=== PATIENT | male | born 1940 ===

== ENCOUNTER 2017-10-07 16:54 | Inpatient (IN) | payer MEDICARE, OTHER ==
[2017-10-07 16:56] VITALS: BMI 35.5
[2017-10-07] MEDS ORDERED: Dextrose 50% SYRINGE Inj (50 ml) ONE (16:58)
[2017-10-07] MEDS ORDERED: Dextrose 50% SYRINGE Inj (50 ml) IVP STA ×2 (17:07→18:10)
[2017-10-07] MEDS ORDERED: Dextrose 5%/0.9% NS 1,000 ML IV STA (17:24)
[2017-10-07 17:39] LABS: VENOUS BLOOD GAS BASE EXCESS -10.5 mmol/L (0.0-2.0)
[2017-10-07 17:50] LABS: BASO # 0.07 K/mm3 (0.0-2.0); BASO % 0.4 % (0.0-3.0); EOS # 2.6 (0.0-0.7); EOS % 15.6 % (1.5-5.0); GRAN # 10.24 (1.4-6.5); HEMATOCRIT 30.5 % (42.0-52.0); LYMPH # 2.8 (1.2-3.4); LYMPH % 16.9 % (22.0-35.0); MEAN CELL VOLUME 85.4 fl (80.0-105.0); MEAN CORPUSCULAR HEMOGLOBIN 26.1 pg (25.0-35.0); MEAN CORPUSCULAR HGB CONC 30.5 g/dl (31.0-37.0); MEAN PLATELET VOLUME 10.1 fl (7.0-11.0); MONO % 6.1 % (1.0-6.0); RED CELL DISTRIBUTION WIDTH 15.5 % (11.5-14.5); WHITE BLOOD COUNT 16.8 10^3/ul (4.5-11.0)
[2017-10-07 18:01] LABS: BILIRUBIN,TOTAL 0.4 mg/dL (0.2-1.3); CALCIUM 9.5 mg/dL (8.4-10.5); TOTAL PROTEIN 7.8 g/dL (5.8-8.3)
[2017-10-07 18:03] LABS: POTASSIUM 6.4 mmol/L (3.6-5.0)
--- NOTE | 2017-10-07 18:06 | ED PDOC ---
Arrival/HPI - General Chief Complaint: Altered Mental Status Time Seen by Provider: 10/07/17 17:06 - History of Present Illness Narrative History of Present Illness (Text): 77M biba for ams noted by son jamarcus mast. last seen normal 1.5 hours before. now lethargic w slurred speech. he is visiting from [place]. his son knows he is taking pills for his dm but otherwise unsure of medical hx. Past Medical History - Cardiac Hx Hypertension: Yes - Pulmonary Hx Respiratory Disorders: No - Neurological Hx Neurological Disorder: No - HEENT Hx HEENT Disorder: No - Renal Hx Renal Disorder: No - Endocrine/Metabolic Hx Diabetes Mellitus Type 2: Yes - Hematological/Oncological Hx Blood Disorders: No - Integumentary Hx Dermatological Disorder: No - Musculoskeletal/Rheumatological Hx Musculoskeletal Disorders: Yes Other/Comment: neuropathy - Gastrointestinal Hx Gastrointestinal Disorders: No - Genitourinary/Gynecological Hx Genitourinary Disorders: No - Psychiatric Hx Psychophysiologic Disorder: No Hx Substance Use: No - Anesthesia Hx Anesthesia: No Family/Social History Family/Social History: Unknown Family HX Smoking Status: Never Smoked Hx Alcohol Use: No Hx Substance Use: No Allergies/Home Meds Allergies/Adverse Reactions: Allergies No Known Allergies Allergy (Verified 10/07/17 16:55) Home Medications: Home Meds Medication Instructions Recorded Confirmed Atorvastatin [Lipitor] 40 mg PO DIN 10/07/17 10/07/17 Carvedilol [Coreg] 12.5 mg PO BID 10/07/17 10/07/17 Clopidogrel [Plavix] 75 mg PO DAILY 10/07/17 10/07/17 Gabapentin [Neurontin] 800 mg PO DAILY 10/07/17 10/07/17 Glimepiride [amaRYL] 4 mg PO DAILY 10/07/17 10/07/17 Hydralazine HCl 100 mg PO TID 10/07/17 10/07/17 Losartan Potassium 50 mg PO DAILY 10/07/17 10/07/17 Review of Systems - Review of Systems Systems not reviewed;Unavailable: Altered Mental Status Physical Exam Vital Signs Reviewed: Yes Vital Signs Temp Pulse Resp BP Pulse Ox 10/07/17 21:06 71 18 155/75 H 98 10/07/17 19:40 75 19 153/74 H 98 10/07/17 17:14 96.7 F L 10/07/17 17:09 98.7 F 129 H 17 154/70 H 97 Appearance: Positive for: Well-Appearing, Non-Toxic, Comfortable Pain Distress: None Mental Status: Positive for: Alert and Oriented X 3 Finger Stick Blood Glucose: 111 - Systems Exam Head: Present: Atraumatic Pupils: Present: PERRL Extroacular Muscles: Present: EOMI Mouth: Present: Moist Mucous Membranes Neck: Present: Normal Range of Motion Respiratory/Chest: No: Respiratory Distress, Accessory Muscle Use, Wheezes, Rales, Retracting, Rhonchi, Tachypneic Cardiovascular: Present: Regular Rate and Rhythm Abdomen: No: Tenderness, Distention Upper Extremity: Present: NORMAL PULSES Lower Extremity: No: Edema Neurological: Present: GCS=15, CN II-XII Intact, Motor Func Grossly Intact, Normal Sensory Function, Other (no focal deficits) Skin: Present: Warm, Dry Psychiatric: Present: Alert, Oriented x 3 Medical Decision Making ED Course and Treatment: note: physical exam is after D50. prior to rx pt had unintelligible speech and was lethargic. bg <20. after D50 his mental status improved. lea Magana who will admit - Critical Care Critical Care Minutes: 45 minutes - Lab Interpretations Lab Results: 10/07/17 17:00 10/07/17 17:00 Lab Results 10/07/17 18:30: pCO2 32 L, pO2 103.0 H, HCO3 14.0 L, ABG pH 7.25 L, ABG Total CO2 15.0 L, ABG O2 Saturation 99.1 H, ABG O2 Content 11.8 L, ABG Base Excess - 12.1 L, ABG Hemoglobin 8.6 L, ABG Carboxyhemoglobin 1.5, POC ABG HHb (Measured) 0.9, ABG Methemoglobin 1.2, ABG O2 Capacity 11.9 L, Hgb O2 Saturation 96.4, FiO2 21.0 10/07/17 18:00: Urine Color Yellow, Urine Appearance Clear, Urine pH 6.0, Ur Specific Hatch 1.020, Urine Protein 100 H, Urine Glucose (UA) Negative, Urine Ketones Negative, Urine Blood Negative, Urine Nitrate Negative, Urine Bilirubin Negative, Urine Urobilinogen 0.2, Ur Leukocyte Esterase Negative, Urine RBC 0 - 2, Urine WBC 0 - 2, Ur Epithelial Cells 0 - 2 10/07/17 17:43: POC Glucose (mg/dL) 111 H 10/07/17 17:08: POC Glucose (mg/dL) 187 H 10/07/17 17:00: Thyroxine (T4) 6.9 10/07/17 17:00: Phosphorus 4.3 10/07/17 17:00: Hemoglobin A1c 6.4 10/07/17 17:00: Sodium 140, Chloride 113 H, Potassium 6.4 H*, Carbon Dioxide 16 L, Anion Gap 17, BUN 87 H, Creatinine 4.7 H, Est GFR ( Amer) 15, Est GFR (Non-Af Amer) 12, Random Glucose 26 L*, Calcium 9.5, Total Bilirubin 0.4, AST 29 , ALT 30, Alkaline Phosphatase 113, Total Protein 7.8, Albumin 3.9, Globulin 3.9 , Albumin/Globulin Ratio 1.0 L 10/07/17 17:00: WBC 16.8 H, RBC 3.57, Hgb 9.3 L, Hct 30.5 L, MCV 85.4, MCH 26.1 , MCHC 30.5 L, RDW 15.5 H, Plt Count 310, MPV 10.1, Gran % 61.0, Lymph % (Auto) 16.9 L, Teller % (Auto) 6.1 H, Eos % (Auto) 15.6 H, Baso % (Auto) 0.4, Gran # 10.24 H, Lymph # 2.8, Teller # 1.0 H, Eos # 2.6 H, Baso # 0.07 10/07/17 17:00: pO2 50, VBG pH 7.20 L, VBG pCO2 44.0, VBG HCO3 17.2 L, VBG Total CO2 18.6 L, VBG O2 Sat (Calc) 91.1 H, VBG Base Excess -10.5 L, VBG Potassium 6.8 H*, Sodium 137.0, Chloride 113.0 H, Glucose 115 H, Lactate 0.6 L, FiO2 21.0, Venous Blood Potassium 6.8 H* - RAD Interpretation Radiology Orders: 10/07/17 17:24 CHEST PORTABLE [RAD] Stat - Medication Orders Current Medication Orders: Acetaminophen (Tylenol 325mg Tab) 650 mg PO Q6H PRN PRN Reason: Fever >100.4 F or pain Atorvastatin Calcium (Lipitor) 40 mg PO DIN [facility] Last Admin: 10/08/17 17:46 Dose: 40 mg Carvedilol (Coreg) 25 mg PO BID [facility] Last Admin: 10/08/17 17:46 Dose: 25 mg MAR Pulse and Blood Pressure Document 10/08/17 17:46 Yadi (Rec: 10/08/17 17:47 [id number]) Pulse Pulse Rate (60-90) 87 Blood Pressure Blood Pressure (100/60-150/90) 181/88 Clopidogrel Bisulfate (Plavix) 75 mg PO DAILY [facility] Last Admin: 10/08/17 11:24 Dose: 75 mg Furosemide (Lasix) 40 mg IV Q12 [facility] Last Admin: 10/08/17 23:04 Dose: 40 mg eMAR Start Stop Document 10/08/17 23:04 SBO (Rec: 10/08/17 23:07 SBO [id number]) Intravenous Solution Start Date 10/08/17 Start Time 23:07 End Date 10/08/17 End time 23:07 Total Infusion Time 0 MAR Blood Pressure Document 10/08/17 23:04 SBO (Rec: 10/08/17 23:07 SBO [id number]) Blood Pressure Blood Pressure (100/60-150/90) 131/68 Gabapentin (Neurontin) 300 mg PO TID [facility] Last Admin: 10/08/17 17:46 Dose: Not Given Non-Admin Reason: Patient Refused Behavioural Document 10/08/17 17:46 (Rec: 10/08/17 17:46 [id number]) Maintenance Maintenance Dose Yes Cefepime HCl 0.5 gm/ Sodium (Chloride) 100 mls @ 100 mls/hr IVPB DAILY@2200 [facility] Last Admin: 10/08/17 23:03 Dose: 100 mls/hr eMAR Start Stop Document 10/08/17 23:03 SBO (Rec: 10/08/17 23:04 SBO [id number]) Intravenous Solution Start Date 10/08/17 Start Time 23:04 End Date 10/09/17 End time 00:05 Total Infusion Time 61 Insulin Human Regular (Humulin R Low) 0 units SC ACHS TALIB PRN Reason: Protocol Last Admin: 10/08/17 22:23 Dose: Not Given Non-Admin Reason: Blood Sugar Parameter MAR Blood Glucose Document 10/08/17 22:23 SBO (Rec: 10/08/17 22:23 SBO [id number]) Blood Glucose Finger Stick Blood Glucose (70-120) 153 Losartan Potassium (Cozaar) 50 mg PO DAILY [facility] Last Admin: 10/08/17 11:25 Dose: 50 mg MAR Pulse and Blood Pressure Document 10/08/17 11:25 JJ (Rec: 10/08/17 11:26 J [id number]) Pulse Pulse Rate (60-90) 70 Blood Pressure Blood Pressure (100/60-150/90) 173/75 Nitroglycerin (Nitro-Bid 2% Oint) 1 ea TOP Q4H PRN PRN Reason: accelerated hypertension Last Admin: 10/08/17 17:50 Dose: 1 ea Discontinued Medications Carvedilol (Coreg) 12.5 mg PO BID [facility] Last Admin: 10/08/17 11:26 Dose: Dextrose (Dextrose 50% Inj) 50 ml IVP STAT STA Stop: 10/07/17 17:08 Last Admin: 10/07/17 17:18 Dose: 50 ml IVP Administration Document 10/07/17 17:18 MR (Rec: 10/07/17 17:18 MR [id number]) Charges for Administration # of IVP Administrations 1 Dextrose (Dextrose 50% Inj) 50 ml IVP STAT STA Stop: 10/07/17 18:11 Last Admin: 10/07/17 18:26 Dose: 50 ml IVP Administration Document 10/07/17 18:26 CNR (Rec: 10/07/17 18:26 CNR [id number]) Charges for Administration # of IVP Administrations 1 Dextrose/Sodium Chloride (Dextrose 5%/0.9% Ns 1000 Ml) 1,000 mls @ 999 mls/hr IV .Q1H1M STA Stop: 10/07/17 18:24 Last Admin: 10/07/17 17:40 Dose: 999 mls/hr eMAR Start Stop Document 10/07/17 17:40 CNR (Rec: 10/07/17 17:40 CNR [id number]) Intravenous Solution Start Date 10/07/17 Start Time 17:40 Dextrose/Sodium Chloride (Dextrose 5%/0.45% Ns 1000 Ml) 1,000 mls @ 60 mls/hr IV .[id number] TALIB Last Admin: 10/07/17 21:18 Dose: 60 mls/hr eMAR Start Stop Document 10/07/17 21:18 [email or web address] (Rec: 10/07/17 21:18 [email or web address] [id number]) Intravenous Solution Start Date 10/07/17 Start Time 21:18 End Date 10/07/17 Vancomycin HCl (Vancomycin 1gm) 1 gm in 250 mls @ 167 mls/hr IVPB ONCE ONE Stop: 10/08/17 11:44 Last Admin: 10/08/17 11:24 Dose: 167 mls/hr eMAR Start Stop Document 10/08/17 11:24 JJ (Rec: 10/08/17 11:25 JJ [id number]) Intravenous Solution Start Date 10/08/17 Start Time 11:24 End Date 10/08/17 End time 12:45 Total Infusion Time 81 Insulin Human Regular (Humulin R) 10 units SC STAT STA Stop: 10/07/17 18:11 Last Admin: 10/07/17 18:24 Dose: 10 units Subcutaneous Administrations Document 10/07/17 18:24 CNR (Rec: 10/07/17 18:26 CNR [id number]) Injection Site MAR Injection Site Right Abdomen Charges for Administration # of Subcutaneous Administrations 1 Pneumococcal Polyvalent Vaccine (Pneumovax 23 Vaccine) 0.5 ml IM .ONCE ONE Stop: 10/07/17 22:38 Sodium Bicarbonate (Sodium Bicarbonate 8.4% (50 Meq) Syringe) 50 meq IVP ONCE ONE Stop: 10/07/17 18:13 Last Admin: 10/07/17 18:26 Dose: 50 meq IVP Administration Document 10/07/17 18:26 MR (Rec: 10/07/17 18:26 MR [id number]) Charges for Administration # of IVP Administrations 1 Disposition/Present on Arrival - Present on Arrival Any Indicators Present on Arrival: No History of DVT/PE: No History of Uncontrolled Diabetes: No Urinary Catheter: No History of Decub. Ulcer: No History Surgical Site Infection Following: None - Disposition Have Diagnosis and Disposition been Completed?: Yes Diagnosis: Gcvka-rh-qftingi kidney injury, Hyperkalemia, Metabolic acidosis, Hypoglycemia Disposition: HOSPITALIZED Disposition Time: 18:58 Patient Problems: Current Active Problems Problem Status Onset [id number] kidney injury Acute Hyperkalemia Acute Hypoglycemia Acute Metabolic acidosis Acute Condition: SERIOUS
[2017-10-07] MEDS ORDERED: Insulin Regular 1 UNITS/0.01 ML ML SC STA (18:10)
[2017-10-07] MEDS ORDERED: Sodium Bicarbonate (8.4%) 50 Meq Syringe IVP ONE (18:12)
[2017-10-07] MEDS ORDERED: Sodium Bicarbonate (8.4%) 50 Meq Syringe ONE (18:23)
[2017-10-07 18:26] LABS: URINE BILIRUBIN NEGATIVE (NEGATIVE); URINE BLOOD NEGATIVE (NEGATIVE); URINE GLUCOSE (UA) NEGATIVE (NEGATIVE); URINE KETONE NEGATIVE (NEGATIVE); URINE LEUKOCYTE ESTERASE NEGATIVE Leu/uL (NEGATIVE); URINE PROTEIN 100 mg/dL (<30 mg/dL); URINE UROBILINOGEN 0.2 E.U./dL (<1 E.U./dL)
[2017-10-07 18:33] LABS: URINE APPEARANCE CLEAR (CLEAR); URINE COLOR YELLOW (YELLOW)
[2017-10-07 18:38] LABS: ARTERIAL BLOOD GAS O2 CAPACITY 11.9 mL/dl (16-24); ARTERIAL BLOOD GAS O2 CONTENT 11.8 ML/dl (15-23); ARTERIAL BLOOD GAS PH 7.25 (7.35-7.45); ARTERIAL BLOOD HGB O2 SAT 96.4 % (95.0-98.0); CARBOXYHEMOGLOBIN 1.5 % (0.5-1.5); HHB 0.9 % (0-5); METHEMOGLOBIN 1.2 % (0.0-3.0)
[2017-10-07 18:45] LABS: URINE EPITHELIAL CELLS 0 - 2 /hpf (0-5); URINE RBC 0 - 2 /hpf (0-2); URINE WBC 0 - 2 /hpf (0-6)
--- NOTE | 2017-10-07 19:25 | RAD ---
HISTORY: ams COMPARISON: No prior. FINDINGS: LUNGS: No active pulmonary disease right chest. Limited left basilar atelectasis or infiltrate is difficult to completely exclude due to difficulty penetrating the left base. PLEURA: No significant pleural effusion identified, no pneumothorax apparent. CARDIOVASCULAR: Prominent cardiac silhouette is appreciate with prominent pulmonary vasculature suggesting active CHF. OSSEOUS STRUCTURES: No significant abnormalities. VISUALIZED UPPER ABDOMEN: Normal. OTHER FINDINGS: None. IMPRESSION: Active CHF is suggested. Clinically correlate further. Left basilar atelectasis or infiltrate is difficult to completely exclude.
[2017-10-07] MEDS: Dextrose 5%/0.45% NS 1,000 ML IV SCH ×2 (19:49→21:18)
--- NOTE | 2017-10-07 19:55 | US ---
EXAM: US Retroperitoneal Limited, Renal CLINICAL HISTORY: 77 years old, male; Abnormal findings; Abnormal lab test; Abnormal function test of other organs/systems; Additional info: Azotemia TECHNIQUE: Real-time ultrasound of the retroperitoneum (limited) with image documentation. COMPARISON: No relevant prior studies available. FINDINGS: Right kidney: Apparent mild increase in echogenicity. 1.1 cm cyst. No calculi. No hydronephrosis. Left kidney: Apparent mild increase in echogenicity. No mass. No calculi. No hydronephrosis. IMPRESSION: 1. Apparent mildly echogenic kidneys possibly representing medical renal disease. 2. Incidental/non-acute findings are described above.
[2017-10-07] MEDS ORDERED: Insulin Reg-LOW-Coverage SC SCH (22:00)
[2017-10-07] MEDS: Insulin Reg-LOW-Coverage SC SCH (22:11)
[2017-10-07] MEDS ORDERED: Pneumococcal 23-Valent Vaccine IM ONE (22:37)
[2017-10-07] MEDS ORDERED: Influenza Vaccine 60 mcg/0.5 mL SYR (4YR UP) IM ONE (22:37)
[2017-10-08 05:54] LABS: HEMATOCRIT 28.5 % (42.0-52.0); MEAN CELL VOLUME 84.6 fl (80.0-105.0); MEAN CORPUSCULAR HEMOGLOBIN 26.7 pg (25.0-35.0); MEAN CORPUSCULAR HGB CONC 31.6 g/dl (31.0-37.0); MEAN PLATELET VOLUME 9.8 fl (7.0-11.0); RED CELL DISTRIBUTION WIDTH 15.3 % (11.5-14.5); WHITE BLOOD COUNT 13.9 10^3/ul (4.5-11.0)
[2017-10-08 06:45] LABS: CALCIUM 9.4 mg/dL (8.4-10.5); POTASSIUM 5.5 mmol/L (3.6-5.0)
[2017-10-08] MEDS ORDERED: Dextrose 50% SYRINGE Inj (50 ml) ONE (07:01)
[2017-10-08] MEDS: Insulin Reg-LOW-Coverage SC SCH ×4 (08:14→22:23)
--- NOTE | 2017-10-08 09:08 | CARD ---
APPROVED REPORT EKG Measurement Heart [id number] OR 184P7 [id number] <Conclusion> Normal sinus rhythm Possible Inferior infarct, age undetermined Abnormal ECG
[2017-10-08] MEDS ORDERED: Vancomycin 1 g Inj IVPB ONE (10:10)
[2017-10-08] MEDS ORDERED: Vancomycin 1gm in NS 250ml 1 GM/250 ML BAG IVPB ONE (10:15)
--- NOTE | 2017-10-08 11:14 | RAD ---
HISTORY: r/o chf COMPARISON: 10/07/2017 TECHNIQUE: Chest PA and lateral FINDINGS: LUNGS: No active pulmonary disease. PLEURA: No significant pleural effusion identified. No pneumothorax apparent. CARDIOVASCULAR: Moderate cardiomegaly. There is mild vascular congestion. This has shown improvement OSSEOUS STRUCTURES: No significant abnormalities. VISUALIZED UPPER ABDOMEN: Normal. OTHER FINDINGS: None. IMPRESSION: Improved vascular congestion
[2017-10-08] MEDS: Nitroglycerin 2% Ointment Foilpak UD TOP PRN ×2 (11:26→17:50)
[2017-10-08 13:26] LABS: IRON 46 ug/dL (45-180)
--- NOTE | 2017-10-08 15:06 | HP ---
HISTORY OF PRESENT ILLNESS: This 77-year-old male was examined on the cardiac skinner. He was seen in the presence of his daughter, Rosaura and his son, Laci. I spoke to his daughter, Hilda Beltre [phone] on a teleconference phone call with his daughter, Rosaura and son present. The patient currently resides with his daughter Hilda in [place], [place]. He is a resident of [place]. He has multiple medical comorbidities including chronic renal failure, chronic hypertension, diabetes mellitus, hyperlipidemia, peripheral neuropathy and anemia of chronic disease. He was admitted after presenting to the [facility] ER with slurred speech and altered mental status secondary to hypoglycemia caused by oral diabetic medication in the setting of chronic renal failure. The family states that they knew the patient had renal insufficiency in [place] the extent to which they were not aware of; however, he was taking Amaryl 4 mg p.o. daily prior to this admission and outpatient medications also included losartan, hydralazine, Amaryl, Neurontin, Plavix, Coreg, and Lipitor. In the emergency room his blood sugar was 26mg/dl. He was also hyperkalemic and acidotic with elevated BUN and creatinine. He was given resusitation medications and is being treated and evaluated for the above. ALLERGIES: HE HAS NO KNOWN ALLERGIES TO MEDICATIONS. SOCIAL HISTORY: He is a nonsmoker, nondrinker, non IV drug mis-user. He is retired and living with his daughter in [place]. FAMILY HISTORY: Not remarkable. REVIEW OF SYSTEMS: CONSTITUTIONAL REVIEW: He denied fever or chills. HEAD REVIEW: Denied any active headache. EYE REVIEW: Denied change in visual acuity. EAR REVIEW: Denied hearing loss. THROAT REVIEW: Denied swallowing difficulty. NECK REVIEW: Denied stiffness. CARDIAC REVIEW: Has a history of chronic hypertension, hyperlipidemia. PULMONARY: Denied hemoptysis. GASTROINTESTINAL: Denied GERD. GENITOURINARY: Chronic renal failure. VASCULAR: No claudication. ENDOCRINOLOGIC: Hyperlipidemia and diabetes mellitus. NEUROLOGIC: Questionable history of previous stroke. No seizure. SKIN: No ulcers. No rashes. PHYSICAL EXAMINATION: GENERAL: He is in normal sinus rhythm on the plastic and reconstructive surgeon. He is alert, weak, but able to answer all questions with the assistance of his family translating. VITAL SIGNS: Temperature 98.1, respirations 18, pulse 70, blood pressure 173/75, and pulse ox 97%. HEENT: Head: Normocephalic, atraumatic. Eyes: No icterus. Ears: Clear. Throat: Noninjected. NECK: Supple. HEART: Regular S1 and S2. No pathological rubs, murmurs or gallops. LUNGS: With basilar rales. No wheezing. ABDOMEN: Soft and nontender. No palpable organomegaly. EXTREMITIES: No clubbing, no cyanosis, no edema. SKIN: Without rash. NEUROLOGIC: Grossly intact. PSYCHOLOGIC: Alert. VASCULAR: Legs warm to touch. SKIN: Without rash. No ulcers. LABORATORY DATA: Admission CBC; white count 16,800, hemoglobin 9.3, hematocrit 30.5, and platelets 310,000. Today white count 13,900, hemoglobin 9, hematocrit 28.5, and platelets 270,000. Sodium 143, K 5.5, chloride 117, bicarb 17, BUN 74, creatinine 4.1, estimated GFR 14 mL per minute, blood sugar 161, and calcium 9.4. Iron 46 normal, percent saturation 18 borderline low. Triglycerides 80, cholesterol 87, LDL 32, and HDL 30. Urinalysis showed a 100 mg per decaliter of protein. EKG shows normal sinus rhythm with nonspecific ST-T wave changes. Admission chest x-ray showed congestive heart failure. Renal ultrasound consistent with medical renal disease, no tumor masses, no hydronephrosis, no stones. Repeat chest x-ray reviewed with Dr. Jenaro Vogel shows persistent mild congestive heart failure. No obvious infiltrates. IMPRESSION: This is a 77-year-old male with altered mental status on admission secondary to hypoglycemia secondary to taking oral diabetic medication in the setting of chronic renal failure, with comorbidities of congestive heart failure, cardiomegaly on chest x-ray, rule out cardiomyopathy, chronic hypertension, anemia of chronic disease, diabetes mellitus, hyperlipidemia, peripheral neuropathy and leukocytosis, rule out sepsis. PLAN: Plan as discussed in detail with the patient and family at bedside and on teleconference is to continue his heart-healthy diabetic renal diet. He is ordered to have a 1200 mL p.o. fluid restriction. I have ordered a 2-D echocardiogram to further evaluate cardiomegaly and to evaluate heart wall motion. He is ordered to have a blood and urine culture and will be given one dose of vancomycin 1 g IV piggyback over 90 minutes and Maxipime 500 mg IV 10:00 p.m. nightly pending culture results. He will have serial CBCs to monitor his white blood cell count as well as hemoglobin/hematocrit. He is ordered to have Plavix 75 mg p.o. daily, nitroglycerin 1 inch to chest wall q.4 hours p.r.n. accelerated hypertension if his systolic blood pressure should be greater than 160 or his diastolic blood pressure should be greater than 100. He continues on Neurontin 300 mg p.o. t.i.d., Lipitor 40 mg p.o. at bedtime, Lasix 40 mg IV q. 12 hours, regular low-dose insulin protocol a.c. meals and at bedtime, Cozaar 50 mg p.o. daily, and Coreg 25 mg p.o. b.i.d. This was dose adjusted for his accelerated hypertension. As discussed with the family, he will be scheduled for repeat CBC and basic metabolic panels for the next 48 hours. I am also awaiting the results of ferritin, folic acid and vitamin B12 levels. Based on his laboratory and clinical progress, a decision will be made regarding the possible institution of hemodialysis. Also medications will be adjusted based on his blood pressure, pulse and cardiac echo results. Antibiotics will be continued pending the results of urine and blood cultures and the patient and family will need diabetic nursing education regarding the use of a diabetic monitor and insulin coverage. They are fully aware that he is to take no further oral antihypoglycemic medication given his chronic renal failure and he will remain on high-risk fall protocol and neuro checks throughout his hospital stay. He is ordered to have physical therapy for reconditioning and gait training and will be evaluated as a candidate for transitional care rehab. Greater than fifty minutes was spent in the care, counseling and management of this patient today. The case was reviewed in detail with his family, himself, nursing, nurse practitioner, and case management. All questions were answered. Heather Magana MD TOÑO
--- NOTE | 2017-10-08 16:38 | CARD ---
APPROVED REPORT EXAM: Two-dimensional and M-mode echocardiogram with Doppler and color Doppler. INDICATION CARDIOMEGALY 2D DIMENSIONS Left Atrium (2D)3.9 (1.6-4.0cm)IVSd1.5 (0.7-1.1cm) LVDd4.3 (3.9-5.9cm)PWd1.5 (0.7-1.1cm) LVDs2.6 (2.5-4.0cm)FS (%) 39.4 % LVEF (%)70.2 (>50%) M-Mode DIMENSIONS Aortic Root2.50 (2.2-3.7cm)Aortic Cusp Exc.1.40 (1.5-2.0cm) Aortic Valve AoV Peak Cwevgeva037.0cm/Keyonna Peak GR.8mmHg Mitral Valve MV E Fyugopyn278.0cm/sMV A Hehrxeyg301.0cm/sE/A ratio0.9 TDI E/Lateral E'0.0E/Medial E'0.0 Tricuspid Valve TR Peak [id number]/sRAP [id number] Peak Gr.15mmHg [id number] LEFT VENTRICLE The left ventricle is normal size. There is mild to moderate concentric left ventricular hypertrophy. The left ventricular function is normal.[id number] There is normal LV segmental wall motion. Transmitral Doppler flow pattern is Grade III-reversible restrictive diastolic dysfunction. No left ventricle thrombus noted on this study. There is no ventricular septal defect visualized. There is no left ventricular aneurysm. There is no mass noted in the left ventricle. RIGHT VENTRICLE The right ventricle is normal size. There is normal right ventricular wall thickness. The right ventricular systolic function is normal. ATRIA The left atrium size is normal. The right atrium size is normal. The interatrial septum is intact with no evidence for an atrial septal defect. AORTIC VALVE The aortic valve is thickened but opens well. The aortic valve is moderately sclerotic. There is trace aortic regurgitation. There is no aortic valvular stenosis. There is no aortic valvular vegetation. MITRAL VALVE The mitral valve is thickened but opens well. Mitral regurgitation is mild. There is no mitral valve stenosis. There is no evidence of mitral valve prolapse. TRICUSPID VALVE The tricuspid valve leaflets are thickened , but open well. There is trace tricuspid regurgitation.RVSP-25 mmof Hg. There is no tricuspid valve stenosis. There is no tricuspid valve prolapse or vegetation. PULMONIC VALVE The pulmonic valve is mildly thickened. There is trace pulmonic valvular regurgitation. There is no pulmonic valvular stenosis. GREAT VESSELS The aortic root is normal in size. The ascending aorta is normal in size. The pulmonary artery is normal. The IVC is normal in size and collapses >50% with inspiration. PERICARDIAL EFFUSION There is no pleural effusion. There is no pericardial effusion. <Conclusion> There is mild to moderate concentric left ventricular hypertrophy. The left ventricular function is normal.[id number] There is trace aortic regurgitation. Mitral regurgitation is mild. There is trace tricuspid regurgitation.RVSP-25 mmof Hg. The IVC is normal in size and collapses >50% with inspiration. There is no pericardial effusion.
[2017-10-08 17:38] LABS: FOLATE 11.5 ng/mL
[2017-10-08] MEDS ORDERED: Cefepime (Maxipime) 1 g Inj IVPB SCH (22:00)
[2017-10-08] MEDS: Cefepime 0.5 GM in Sodium Chloride 0.9% 100 ML IVPB SCH (23:03)
[2017-10-09 07:11] LABS: HEMATOCRIT 28.9 % (42.0-52.0); MEAN CELL VOLUME 83.8 fl (80.0-105.0); MEAN CORPUSCULAR HEMOGLOBIN 26.4 pg (25.0-35.0); MEAN CORPUSCULAR HGB CONC 31.5 g/dl (31.0-37.0); RED CELL DISTRIBUTION WIDTH 15.3 % (11.5-14.5); WHITE BLOOD COUNT 12.2 10^3/ul (4.5-11.0)
[2017-10-09 07:13] LABS: CALCIUM 9.3 mg/dL (8.4-10.5)
[2017-10-09 07:18] LABS: POTASSIUM 5.6 mmol/L (3.6-5.0)
[2017-10-09] MEDS: Insulin Reg-LOW-Coverage SC SCH ×4 (07:55→22:03)
--- NOTE | 2017-10-09 15:44 | PN ---
DATE: 10/09/2017 SUBJECTIVE: This 77-year-old male was examined at his bedside. His case was reviewed in detail with himself and his nurse, Agnes Quinones, registered nurse. The patient is presently denying any active chest pain. He is less short of breath. He denies fever or chills and remains in a normal sinus rhythm on the cardiac cath tech. He was admitted with hypoglycemia and yesterday he had several episodes of low blood sugar. His oral hypoglycemic medications have been held since his admission on 10/09/2017. He is currently ordered to have a diabetic nursing evaluation by nurse, Meghan Gaines, registered nurse for instruction on the use of a diabetic monitor and insulin. The patient has had no further neurological sequelae. He is fully alert and oriented and able to answer all questions appropriately. There are no neurological defects noted. PHYSICAL EXAMINATION: GENERAL: He is in a normal sinus rhythm on cardiac cath tech. VITAL SIGNS: Temperature 98.2, respirations 20, pulse 65, blood pressure 138/57. Pulse ox 97% room air. HEAD: Normocephalic, atraumatic. Eyes: No icterus. Ears: Clear. Throat: Noninjected. NECK: Supple. HEART: Regular S1, S2. LUNGS: Have decreased breath sounds at the bases. ABDOMEN: Soft. EXTREMITIES: No edema. SKIN: Without rash. NEUROLOGICAL: Moves all four extremities on command. PSYCHOLOGICAL: Alert and oriented x3. VASCULAR: Legs warm to touch. SKIN: Without rash. No ulcerations. LABORATORY DATA: Sodium 140, potassium 5.6, chloride 112, bicarb 18, BUN 67, creatinine 3.8. Random blood sugar 272. Iron 46 normal, percent saturation 18. White count 12,200, previously 16,800, hemoglobin 9.1, hematocrit 28.9, platelets 258,000. Blood cultures no growth after 24 hours. Urine cultures pending. EKG showed normal sinus rhythm. Chest x-ray showed mild vascular congestion with improvement in CHF from admission, also moderate cardiomegaly, no active pulmonary infiltrates, 2-D echocardiogram was reviewed this revealed left ventricular hypertrophy with normal left ventricular function of approximately 65% to 70% ejection fraction with normal LV wall motion. Right ventricular systolic function appears normal. No pericardial effusion was noted. IMPRESSION: This is a 77-year-old male admitted with altered mental status secondary to severe hypoglycemia because he was using oral hypoglycemics as an outpatient in the setting of chronic renal failure stage V to with comorbidities of chronic hypertension, longstanding diabetes mellitus, anemia of chronic disease, history of old stroke, hyperlipidemia, degenerative arthritis and deconditioning, now with congestive heart failure and leukocytosis, rule out sepsis, peripheral neuropathy, rule out urinary tract infection. PLAN: At present is to continue Maxipime 500 mg IV q.24, while awaiting urine C and S results. He continues to have his CBC monitored daily and will continue on adjusted Coreg of 25 mg p.o. b.i.d. given accelerated hypertension, Cozaar 50 mg p.o. daily given ventricular hypertrophy and chronic hypertension and renal insufficiency, regular low-dose insulin coverage a.c. meals and at bedtime, Lasix 40 mg IV q.8 hours given congestive heart failure symptoms and radiographic findings on chest x-ray. He continues on Lipitor 40 mg p.o. at dinnertime, Neurontin 300 mg p.o. t.i.d., nitroglycerin 1 inch to chest wall q.4 hours p.r.n. accelerated hypertension if his systolic blood pressure should be greater than 160 or his diastolic blood pressure greater than 100. He continues on Plavix 75 mg p.o. daily, he will receive Tylenol 650 mg p.o. q.6 hours p.r.n. pain or temperature greater than 101. He is ordered to have a repeat basic metabolic panel and CBC in the a.m. He is ordered to have physical therapy for reconditioning and gait training and remains on neuro checks q. shift as well as high-risk fall precautions while hospitalized. Hopefully, he will be accepted to transitional care rehab for reconditioning and gait training and no decision has been made as to the implementation of dialysis at the present time. He will need to have resolution of congestive heart failure while monitoring his electrolytes and clinical symptoms and then a decision on the timing of possible dialysis will be better entertained. He remains on a 1200 mL p.o. fluid restriction with a renal diet with cardiac and diabetic restrictions outlined as well. All of this was reviewed in detail with the patient, family and nursing at the patient's bedside. Greater than fifty minutes were spent in the care, management, counseling and ordering of medications and review of reports for this patient today. All questions were answered. Heather Magana MD [facility]
[2017-10-09] MEDS: Cefepime 0.5 GM in Sodium Chloride 0.9% 100 ML IVPB SCH (21:36)
[2017-10-10 06:23] LABS: HEMATOCRIT 30.6 % (42.0-52.0); MEAN CELL VOLUME 82.9 fl (80.0-105.0); MEAN CORPUSCULAR HEMOGLOBIN 26.3 pg (25.0-35.0); MEAN CORPUSCULAR HGB CONC 31.7 g/dl (31.0-37.0); MEAN PLATELET VOLUME 9.9 fl (7.0-11.0); RED CELL DISTRIBUTION WIDTH 14.7 % (11.5-14.5); WHITE BLOOD COUNT 11.7 10^3/ul (4.5-11.0)
[2017-10-10 06:35] LABS: CALCIUM 9.7 mg/dL (8.4-10.5); POTASSIUM 5.4 mmol/L (3.6-5.0)
[2017-10-10 06:46] VITALS: TEMP 98.4; O2SAT 97
[2017-10-10] MEDS: Insulin Reg-LOW-Coverage SC SCH ×2 (07:53→13:54)
[2017-10-10 12:44] VITALS: PULSE 76; RESP 20
[2017-10-10 12:56] VITALS: BP 130/67
--- NOTE | 2017-10-11 08:29 | DS ---
He was admitted on 10/07/2017, seen in followup on 10/08/2017 and is being discharged from room 261 on 10/10/2017. FINAL DIAGNOSES: Altered mental status secondary to severe hypoglycemia, the patient was taking oral hypoglycemics as an outpatient with chronic renal failure stage V; chronic hypertension; longstanding diabetes mellitus; anemia of chronic disease; history of old stroke; hyperlipidemia; degenerative arthritis; deconditioning; congestive heart failure; leukocytosis; and peripheral neuropathy. DISPOSITION: Transitional care rehab. DISCHARGE MEDICINES: Will include; Coreg 25 mg b.i.d., Cozaar 50 mg p.o. daily, insulin regular low-dose before meals and at bedtime, Lasix 40 mg IV q.8, Lipitor 40 mg p.o. at dinner time, Maxipime 500 mg IV 10:00 p.m. nightly, Neurontin 300 mg p.o. t.i.d., nitroglycerin to chest wall 1 inch q.4 hours p.r.n. if systolic blood pressure greater than 160 and diastolic blood pressure greater than 100, Plavix 75 mg p.o. daily, Tylenol 650 p.o. q.6 hours p.r.n. pain or temperature greater than 101. He will remain on a renal heart-healthy diabetic diet with a 1200 mL p.o. fluid restriction. He will remain on fall precautions, neuro checks q. shift and has an order for physical and occupational therapy. SUMMARY: This 77-year-old male was brought to the [facility] ER by his daughter after he had altered mental status found to be secondary to oral hypoglycemics in a gentleman with chronic renal failure stage V. He was admitted, treated with parenteral D50 as well as D5W IV drip and the discontinuation of oral hypoglycemics. He was placed on insulin coverage before meals and at bedtime and had an order placed for diabetic nursing education on the use of a diabetic monitor and insulin coverage. Of note, on admission, he was noted to have a white blood cell count 16,800 and at the time of discharge, it is 11,700 with blood culture showing no growth at 48 hours and urine culture showing no growth as well. He was treated with renal dose reduced Maxipime with good results. Also, the patient was noted to have on admission a BUN of 87, a creatinine of 4.7 and an estimated GFR of 12 mL/minute. His admission blood sugar was 26. All the liver function testing was normal including bilirubin 0.4, AST 29, ALT 30 and alk phos 113. Chest x-ray Showed mild congestive heart failure. Renal ultrasound showed no evidence of kidney mass obstruction or renal stones, but echogenic kidneys consistent with medical renal disease. EKG showed normal sinus rhythm with nonspecific ST-T wave pattern. An echocardiogram was reviewed and revealed left ventricular hypertrophy with normal left ventricular ejection fraction of 65% to 70% with normal right ventricular size and normal right ventricular function. His testing revealed no pericardial effusion. He was noted to have mild mitral regurgitation and no evidence of aortic valvular stenosis. At the time of his transfer to transitional care rehab, his vital signs were 98.1 temperature, respirations 18, pulse 65 and blood pressure 130/77 with a pulse ox of 95% room air. White count 11,700, hemoglobin 9.7, hematocrit 30.6, platelets 266,000. Sodium 138, potassium 5.4, chloride 107, bicarb 21, BUN 75, creatinine 4.1. Estimated GFR 14 mL/minute. Random blood sugar 96. The plan will be to adjust medications, monitor labs, monitor the patient's clinical progress with physical and occupational therapy. He will be ordered to have basic metabolic panel and CBCs and monitored closely given his advanced renal dysfunction. Greater than fifty minutes was spent in the care, counseling, management, review of orders, labs and discussion of transfer orders for this patient today. All questions were answered. Heather Magana MD [facility]
== END 2017-10-10 15:29 | DRG 638 ==
LOC: ED 16:54 → ERH 18:58 → 2RNO 21:28
PROVIDERS: ADMIT Internal Medicine; ATTEND Internal Medicine
DX: E11.649 Type 2 diabetes mellitus with hypoglycemia without coma (principal); T38.3X5A Adverse effect of insulin and oral hypoglycemic [antidiabetic] drugs, initial encounter; I13.2 Hypertensive heart and chronic kidney disease with heart failure and with stage 5 chronic kidney disease, or end stage renal disease; N18.5 Chronic kidney disease, stage 5; E11.22 Type 2 diabetes mellitus with diabetic chronic kidney disease; E87.5 Hyperkalemia; I50.9 Heart failure, unspecified; E11.42 Type 2 diabetes mellitus with diabetic polyneuropathy; E78.5 Hyperlipidemia, unspecified; D63.8 Anemia in other chronic diseases classified elsewhere; I34.0 Nonrheumatic mitral (valve) insufficiency; Z86.73 Personal history of transient ischemic attack (TIA), and cerebral infarction without residual deficits

== ENCOUNTER 2017-10-10 15:42 | Inpatient (IN) | payer OTHER ==
[2017-10-10] MEDS ORDERED: Nitroglycerin 2% Ointment Foilpak UD TOP PRN (16:00)
[2017-10-10 17:28] VITALS: BMI 30.7
[2017-10-10] MEDS: Insulin Reg-LOW-Coverage SC SCH ×2 (17:29→21:56)
[2017-10-10] MEDS: Cefepime 0.5 GM in Sodium Chloride 0.9% 100 ML IVPB SCH (21:49)
[2017-10-11 06:32] LABS: HEMATOCRIT 29.2 % (42.0-52.0); MEAN CELL VOLUME 82.3 fl (80.0-105.0); MEAN CORPUSCULAR HEMOGLOBIN 26.5 pg (25.0-35.0); MEAN CORPUSCULAR HGB CONC 32.2 g/dl (31.0-37.0); MEAN PLATELET VOLUME 9.8 fl (7.0-11.0); RED CELL DISTRIBUTION WIDTH 14.4 % (11.5-14.5); WHITE BLOOD COUNT 11.4 10^3/ul (4.5-11.0)
[2017-10-11] MEDS: Insulin Reg-LOW-Coverage SC SCH ×4 (06:41→22:13)
[2017-10-11 07:09] LABS: CALCIUM 9.1 mg/dL (8.4-10.5)
[2017-10-11 07:25] LABS: POTASSIUM 5.7 mmol/L (3.6-5.0)
[2017-10-11] MEDS ORDERED: Sod Polystyrene Sulf 15 gm/60 ml Susp PO ONE (07:44)
[2017-10-11 14:13] LABS: INR 1.21 (0.93-1.08)
--- NOTE | 2017-10-11 15:25 | PN ---
DATE: 10/11/2017 SUBJECTIVE: This 77-year-old male was examined at his bedside in the presence of his daughter Rosaura, his son who is a nika, and his daughter Mitra via telephone conference. The patient was out of bed to chair, denying chest pain or cough or hemoptysis. He was noted to have hyperkalemia earlier this morning and this required treatment with oral Kayexalate. He was admitted with hypoglycemia, altered mental status as well as congestive heart failure that is still present on followup chest x-ray. OBJECTIVE: VITAL SIGNS: Today's temperature is 98.1, respirations 18, pulse 64, blood pressure 123/64. Pulse ox 95% room air. HEENT: Head: Normocephalic, atraumatic. Eyes: No icterus. Ears: Clear. Throat: Noninjected. NECK: Supple. HEART: Irregular S1, S2. LUNGS: Decreased breath sounds at the bases. ABDOMEN: Obese. EXTREMITIES: No edema. SKIN: Without rash. NEUROLOGICAL: Intact. PSYCHOLOGICAL: Alert. VASCULAR: Legs warm to touch. LABORATORY DATA: White count 11,400, hemoglobin 9.4, hematocrit 29.2, platelets 257,000. Sodium 137, K 5.7, chloride 107, bicarb 19, BUN 95, creatinine 5.0. Estimated GFR 11 mL per minute. Random blood sugar 109, calcium 9.1. IMPRESSION AND PLAN: This is a 77-year-old male with end-stage renal disease now hemodialysis dependent with comorbidities of hyperkalemia, metabolic acidosis, congestive heart failure, stable atherosclerotic heart disease, chronic hypertension, insulin-dependent diabetes mellitus, hyperlipidemia, peripheral neuropathy, history of old stroke for which the patient was receiving Plavix, which will now be put on hold since he has a outpatient scheduled appointment for an elective epidural with Dr. Paiz on 10/18 within 1 week of today's date. Also with anemia of chronic disease, degenerative arthritis and plan as discussed with the patient, nursing, family and Dr. Colin Oconnell from [facility] will be to continue renal diabetic heart-healthy diet with 1000 mL p.o. fluid restriction. His Plavix has been held in anticipation of this epidural next week as per the patient and family request. He continues on nitroglycerin 1 inch to chest wall q.4 h. p.r.n. accelerated hypertension if systolic blood pressure greater than 160 or diastolic blood pressure greater than 100, Neurontin 300 mg p.o. t.i.d., Maxipime 500 mg IV q. 24, Lipitor 40 mg p.o. daily, Lasix 40 mg IV q.8, Kayexalate 30 g one dose was administered, regular low-dose insulin protocol a.c. meals and h.s. and the patient has been ordered to have a diabetic evaluation by Meghan Gaines from diabetic education regarding use of a diabetic monitor and insulin coverage. I asked her to inform and instruct the family as well. He continues on Cozaar 50 mg p.o. daily, Coreg 25 mg p.o. b.i.d. He is awaiting the placement of Tesio/Joppa catheter by Dr. Colin Oconnell with whom I have spoken and will continue on high-risk fall protocol and physical and occupational therapy as outlined. Once the patient is established on dialysis, his of IV diuretics will be discontinued. We will monitor his electrolytes, potassium, bicarbonate, BUN and creatinine and he will also receive Procrit for anemia control. All of the above was discussed in detail with the patient, family, nursing and Dr. Colin Oconnell from [facility]. Greater than fifty minutes was spent in the care, counseling, management and ordering and review of labs and x-rays for this patient today. All questions were answered. Heather Magana MD MTDD
[2017-10-11] MEDS: Cefepime 0.5 GM in Sodium Chloride 0.9% 100 ML IVPB SCH (22:13)
[2017-10-12] MEDS: Insulin Reg-LOW-Coverage SC SCH ×4 (06:33→22:16)
[2017-10-12 07:09] LABS: HEMATOCRIT 30.6 % (42.0-52.0)
[2017-10-12 07:43] LABS: POTASSIUM 4.9 mmol/L (3.6-5.0)
--- NOTE | 2017-10-12 13:12 | PN ---
DATE: 10/12/2017 DIALYSIS PROGRESS NOTE SUBJECTIVE: This 77-year-old male is in the Renal Dialysis Unit, dialyzing on F160, 140 sodium, and 2K bicarb bath. LABORATORY DATA: Electrolytes showed sodium of 138, potassium of 4.9, chloride of 107, bicarbonate of 17, BUN of 100, and creatinine of 5.3. Random blood sugar was 127. IMPRESSION AND PLAN: His dialysate will be changed to a 3K bicarbonate bath. Blood pressure currently is 121/69 with a pulse of 70. Blood flow rates are 225 mL per minute. I am aiming for 1 kg off. He will be ordered to receive Aranesp 50 mcg intravenously at treatment today and will be scheduled for repeat dialysis in the a.m. All of this was discussed with the patient and charge nurse, Hortencia Lr, registered nurse. Heather Magana MD [facility]
[2017-10-12] MEDS: Cefepime 0.5 GM in Sodium Chloride 0.9% 100 ML IVPB SCH (22:17)
[2017-10-13] MEDS: Insulin Reg-LOW-Coverage SC SCH ×4 (07:09→21:19)
--- NOTE | 2017-10-13 08:14 | PN ---
DATE: 10/12/2017 DIALYSIS PROGRESS NOTE SUBJECTIVE: This 77-year-old male was examined in the Renal Dialysis Unit. He is dialyzing on F160, 140 sodium, 2 K, bicarb bath with blood flow rate of 225 mL per minute. I am checking his pre dialysis potassium level. PHYSICAL EXAMINATION VITAL SIGNS: His blood pressure is 155/84, pulse 66 and blood flow rate of 225 mL per minute. HEART: Regular S1 and S2. LUNGS: Decreased breath sounds at the bases. ABDOMEN: Soft. EXTREMITIES: Show no edema. He is dialyzing via right tunneled Tessio dialysis [place] catheter. He will be dialyzing for 1.5 hours and I am aiming for 1 kg fluid removal. Heather Magana MD [facility]
[2017-10-13] MEDS: Cefepime 0.5 GM in Sodium Chloride 0.9% 100 ML IVPB SCH (21:18)
--- NOTE | 2017-10-14 00:51 | PN ---
DATE: 10/13/2017 DIALYSIS PROGRESS NOTE SUBJECTIVE: This 77-year-old male is in the renal dialysis unit on a F160, 140 sodium, 3 K bicarb bath, aiming for 2 kg of fluid removal today. Blood pressure is 125/59, pulse is 63, blood flow rates 250 mL per minute and previous metabolic panel showed sodium 138, K 4.9, chloride 107, bicarb 17, BUN 100, creatinine 5.3, random blood sugar 186. Hemoglobin 9.8, hematocrit 30.6. The patient will receive Aranesp 50 mcg IV weekly. His hepatitis serology is pending and Hectorol will be prescribed pending his intact PTH levels. All of the above was reviewed in detail with the renal dialysis nursing staff and the patient. Heather Magana MD [facility]
[2017-10-14] MEDS: Insulin Reg-LOW-Coverage SC SCH ×3 (06:56→17:21)
--- NOTE | 2017-10-14 08:10 | PN ---
DATE: 10/13/2017 DIALYSIS PROGRESS NOTE SUBJECTIVE: This 77-year-old male was in the [facility] Renal Dialysis Unit, dialyzing via a tunneled Tessio [place] catheter at hemodialysis today. He is on a F160, 140 sodium, 3 K, bicarb bath with blood flow rate of 250 mL per minute. PHYSICAL EXAMINATION VITAL SIGNS: Blood pressure is 124/62 with a pulse of 64, respiration of 16, and he is afebrile. HEART: Regular S1 and S2. LUNGS: Basilar crackles. PLAN: He is tolerating blood flow rate of 250 mL and I have asked his nurse Nohemy Harrell, registered nurse to aim for 2 kg of fluid removal today. Heather Magana MD [facility]
[2017-10-14 11:17] LABS: HEMATOCRIT 27.7 % (42.0-52.0)
--- NOTE | 2017-10-14 19:48 | PN ---
SUBJECTIVE: This 77-year-old male was examined in the renal dialysis unit in the presence of dialysis nurse, Hortencia Ortez, registered nurse. The patient is dialyzing on a F 160, 140 sodium, 3 K bicarb bath with blood flow rates of 250 mL per minute via right tunneled Tessio [place] dialysis catheter. PHYSICAL EXAMINATION VITAL SIGNS: Blood pressure was 121/63, pulse 63, respirations 18, temperature afebrile. HEART: Regular, S1 and S2. LUNGS: Had decreased breath sounds at the bases. PLAN: Is to remove 2 kg of fluid today as able. Current labs are pending. Heather Magana MD MTDD
[2017-10-15] MEDS: Insulin Reg-LOW-Coverage SC SCH ×4 (00:07→17:30)
--- NOTE | 2017-10-15 09:06 | PN ---
SUBJECTIVE: This 77-year-old male is on a F161, 140 sodium, 3 K bicarb bath. This morning, his hemoglobin is 8.9, hematocrit 27.7. Potassium level 4.3, random blood sugar 223. The patient will dialyze for 2-1/2 hours. He is tolerating blood flow rates of 300 mL per minute. He is scheduled to receive Aranesp 50 mcg IV weekly, Venofer 100 mg IV times 10 doses, today's dose will be #2 and I am aiming for 2 kg off as tolerated. All of the above was reviewed with the patient and charge nurse, Hortencia Ortez, registered nurse. Heather Magana MD MTDD
[2017-10-16] MEDS: Insulin Reg-LOW-Coverage SC SCH ×5 (00:02→21:49)
[2017-10-16 11:32] LABS: HEMATOCRIT 28.9 % (42.0-52.0)
--- NOTE | 2017-10-16 18:11 | RAD ---
HISTORY: r/o chf COMPARISON: 10/08/2017 TECHNIQUE: Chest PA and lateral FINDINGS: LUNGS: No active pulmonary disease. PLEURA: No significant pleural effusion identified. No pneumothorax apparent. CARDIOVASCULAR: Tunneled central venous dialysis catheter new since prior examination. OSSEOUS STRUCTURES: No significant abnormalities. VISUALIZED UPPER ABDOMEN: Normal. OTHER FINDINGS: None. IMPRESSION: No active disease.
--- NOTE | 2017-10-16 21:17 | PN ---
DATE: 10/16/2017 DIALYSIS PROGRESS NOTE SUBJECTIVE: This 77-year-old male is dialyzing in the renal unit on a F160, 3-K bicarb bath with blood flow rates of 300 mL per minute. PHYSICAL EXAMINATION: VITAL SIGNS: Blood pressure is 133/73, pulse is 60. HEART: Regular, S1, S2. LUNGS: Clear. LABORATORY DATA: Hemoglobin is 9.3, hematocrit is 28.9, potassium is 4.3. ASSESSMENT AND PLAN: Patient will continue on 3-potassium bath. He is ordered to receive Venofer 100 mg IV today. He will complete 10 doses of IV Venofer and I am establishing a new dry weight as discussed with charge nurse, Hortencia Ortez. The patient will continue to have his dry weight lowered as tolerated. We are aiming for an estimated dry weight of approximately 82 kg. Heather Magana MD [facility]
[2017-10-17] MEDS: Insulin Reg-LOW-Coverage SC SCH ×4 (06:57→21:35)
[2017-10-17 17:08] VITALS: O2SAT 96
--- NOTE | 2017-10-18 02:18 | PN ---
DATE: 10/17/2017 SUBJECTIVE: This 77-year-old male reexamined and case was reviewed with nursing and his son, Laci and daughter, Rosaura. The patient is on schedule for hemodialysis in the a.m., subsequently he will be discharged with plans for a elective epidural injection of his lumbar spine. His Plavix has been withheld for the past week. He is tolerating diet and medication well and is having his blood pressure medication adjusted because of persistent hypertension. He denies any fever, chills, chest pain, shortness of breath and is having his dry weight reestablished on hemodialysis treatments. He continues to dialyze on a no heparin protocol. PHYSICAL EXAMINATION: VITAL SIGNS: Shows temperature 98.2, respirations 18, pulse 62 and blood pressure 139/69 with pulse ox 97% room air. HEENT: Head normocephalic, atraumatic. Eyes: No icterus. Ears: Clear. Throat: Noninjected. NECK: Supple. HEART: Regular S1 and S2. LUNGS: Clear. ABDOMEN: Soft. EXTREMITIES: No edema. SKIN: Without rash. NEUROLOGICAL: Intact. PSYCHOLOGICAL: Alert and oriented x3. VASCULAR: Legs are warm to touch. LABORATORY DATA: Hemoglobin 9.3, hematocrit 28.9. PT/INR 1.21, PTT 29.0. Random blood sugar 207, potassium 4.3. Hepatitis A, B, C serologies are negative. Chest x-ray was reviewed, it now shows resolution of congestive heart failure, no infiltrate, no pleural effusion, no active disease. IMPRESSION: This is a 77-year-old male with end-stage renal disease, now hemodialysis dependent; comorbidities of chronic hypertension; insulin-dependent diabetes mellitus; hyperlipidemia; anemia of chronic disease; degenerative arthritis; spinal arthritis and peripheral neuropathy. PLAN: As discussed with the patient and family at bedside will be to continue Cozaar 50 mg p.o. daily, regular low-dose insulin protocol before meals and at bedtime, Lipitor 40 mg p.o. at dinner time, Coreg was discontinued and he will now receive Lopressor 50 mg p.o. b.i.d. holding for any systolic blood pressure less than 100 or pulse less than 50, Neurontin 300 mg p.o. t.i.d. He continues on a renal heart-healthy diabetic diet with 1200 mL p.o. fluid restriction daily. He will be continued on high-risk fall protocol. He is receiving physical and occupational therapy. He is being instructed on the use of insulin with low-dose regular insulin protocol before meals and at bedtime. We will have hemodialysis in the a.m. with plans for discharge and then follow up hemodialysis on Wednesday. As discussed with the family at the bedside, they will need to clarify with Dr. Gu, from pain management the timing of his resumption of Plavix. Greater than 35 minutes was spent in the care, counseling, management, review of x-rays, labs, medication, use of Insulin and discussion of this patient with nursing, himself and family. All questions were answered. Heather Magana MD MTDD
[2017-10-18] MEDS: Insulin Reg-LOW-Coverage SC SCH (06:41)
[2017-10-18 06:45] LABS: HEMATOCRIT 29.9 % (42.0-52.0)
[2017-10-18 07:34] VITALS: BP 177/79; PULSE 64; RESP 20; TEMP 98.4
--- NOTE | 2017-10-18 08:20 | PN ---
DATE: 10/15/2017 SUBJECTIVE: This 77-year-old male was examined at his bedside. His case was reviewed with his daughter, Mitra and son, Laci Mary at the bedside. The patient was out of bed to chair. He was in good spirits. He denied any chest pain, shortness of breath, fever or chills. He is receiving dialysis on Wednesday, , and Saturdays via a right Tessio Reeder catheter, and I discussed with the patient and his family at the bedside that he will need to be scheduled for an AV fistula placement when medically stable. The patient has had his Plavix held for the past several days in anticipation of an outpatient epidural with Dr. Onesimo Gu from pain management that is scheduled for this coming 10/18/2017. The family is aware that they will need to discuss with Dr. Gu the timing of resuming his Plavix post-epidural injection. The patient is scheduled for hemodialysis in the a.m. He denies any active shortness of breath and was admitted with congestive heart failure as well as uncontrolled hypoglycemia with altered mental status. This has resolved. I did discuss insulin coverage with the patient and his daughter and son at the bedside and I have also placed a repeat order for nurse, Meghan Gaines from [facility] to come and further instruct the patient and his family regarding the use of a diabetic monitor and regular low-dose insulin protocol, sliding scale a.c. meals and at bedtime. Both family and the patient are aware he is no longer to take any oral hypoglycemics. PHYSICAL EXAMINATION: VITAL SIGNS: At present, temperature 98.2, respirations 18, pulse 66, blood pressure 136/65 with a pulse ox of 96% room air. HEENT: Head; normocephalic, atraumatic. Eyes, no icterus. Ears clear. Throat, not injected. NECK: Supple. HEART: Regular S1, S2. LUNGS: Clear. ABDOMEN: Soft. EXTREMITIES: No edema. NEUROLOGICAL: Intact. PSYCHOLOGICAL: Alert. VASCULAR: Legs warm to touch. SKIN: Without rashes. No ulcerations. LABORATORY DATA: Hemoglobin 8.9, hematocrit 27.7. PT/INR 1.21, PTT 29.0. Sodium 138, K 4.3, chloride 107, bicarb 17, BUN 100, creatinine 5.3, random blood sugar 223. Calcium normal 9.0. Hepatitis A,B, and C antigen and antibodies all negative. IMPRESSION: This is a 77-year-old male, now with end-stage renal disease, hemodialysis dependent, who will be dialyzed on an outpatient basis on Wednesday, , and Wednesday at the [facility], with comorbidities of recurrent stroke, stable; history of chronic hypertension; stable atherosclerotic heart disease; congestive heart failure; now insulin-dependent diabetes mellitus; hyperlipidemia; obesity; peripheral neuropathy; spinal arthritis; degenerative arthritis; anemia of chronic disease; and metabolic acidosis secondary to chronic renal failure. PLAN: At present, as discussed with the patient, daughter, son, and nursing, is to continue renal diabetic heart-healthy diet with 1200 mL p.o. fluid restriction daily. He remains on high-risk fall protocol. He is receiving physical and occupational therapy daily for reconditioning and gait training. Outpatient dialysis scheduling and transportation issues were discussed with daughter at length. The patient will continue on nitroglycerin 1 inch to chest wall q. 4 hours p.r.n. accelerated hypertension if systolic blood pressure should be greater than 160 or diastolic blood pressure should be greater than 100. He continues on Neurontin 300 mg p.o. t.i.d., Lipitor 40 mg p.o. at dinnertime, regular low-dose insulin protocol a.c. meals and at bedtime, Cozaar 50 mg p.o. daily, and Coreg 25 mg p.o. b.i.d. He will need a Vascular Surgery consultation once medically stabilized. He will be dialyzed via his Tessio Reeder catheter for the time being. All of his diet, medication, labs, and x-rays were reviewed with daughter, son, patient, and nursing at bedside. Greater than 35 minutes were spent in the care, counseling and review of all of the above today. All questions were answered. Heather Magana MD MTDPrem
[2017-10-18 08:25] LABS: HEMATOCRIT 32.8 % (42.0-52.0); MEAN CELL VOLUME 83.2 fl (80.0-105.0); MEAN CORPUSCULAR HEMOGLOBIN 26.9 pg (25.0-35.0); MEAN CORPUSCULAR HGB CONC 32.3 g/dl (31.0-37.0); MEAN PLATELET VOLUME 9.4 fl (7.0-11.0); RED CELL DISTRIBUTION WIDTH 14.5 % (11.5-14.5); WHITE BLOOD COUNT 10.4 10^3/ul (4.5-11.0)
--- NOTE | 2017-10-18 08:33 | PN ---
DIALYSIS PROGRESS NOTE DATE: 10/16/2017 SUBJECTIVE: This 77-year-old male is dialyzing on a F160, 140 sodium, 3 K bicarb bath with blood flow rates of 300 mL per minute. OBJECTIVE: VITAL SIGNS: His blood pressure is 162/75 with a pulse of 56. HEART: Regular, S1 and S2. LUNGS: Clear. ABDOMEN: Soft. EXTREMITIES: No edema. The patient will dialyze for 2 hours today. I am aiming to reestablish a dry weight and aiming for 2 kg fluid removal today. Heather Magana MD MTDD
[2017-10-18 08:45] LABS: INR 1.21 (0.93-1.08); PARTIAL THROMBOPLASTIN TIME 29.3 Seconds (25.1-36.5)
--- NOTE | 2017-10-18 13:31 | PN ---
DATE: 10/18/2017 DIALYSIS PROGRESS NOTE SUBJECTIVE: This 77-year-old male is dialyzing in the Renal Dialysis Unit on a F160 140 sodium, and 3 K bicarb bath. PHYSICAL EXAMINATION VITAL SIGNS: Blood pressure was 184/82 with a pulse of 57. He is tolerating blood flow rates of 300 mL per minute, respirations are 16 and his temperature is 98.4. CARDIOPULMONARY: Heart is regular S1, S2. LUNGS: Clear to auscultation. ASSESSMENT AND PLAN: I am aiming for 2 kg fluid removal. Heather Magana MD MTDD
--- NOTE | 2017-10-18 14:00 | PN ---
DATE: 10/18/2017 SUBJECTIVE: This 77-year-old male was in the renal dialysis unit, dialyzing on a F160, 140 sodium, 3K bicarb bath. Blood pressure 114/59, pulse 68. He is tolerating blood flow rates of 13 mL per minute aiming for 2 kg fluid removal. White blood cell count 10,400, hemoglobin 10.6, hematocrit 32.8, platelets 200,000. PT/INR 1.21, PTT 29.3. The patient is dialyzing on a no heparin protocol. He is on no anticoagulants. His Plavix has been on hold for over 7 days in anticipation of an elective epidural by Onesimo Odonnell MD. The patient will receive Venofer 100 mg IV today at dialysis. He is tolerating prescription as outlined. Heather Magana MD MTDD
--- NOTE | 2017-10-19 10:31 | DS ---
FINAL DIAGNOSES: Chronic renal failure, hemodialysis dependent; stable atherosclerotic heart disease; history of type 2 insulin-dependent diabetes mellitus, chronic hypertension, obesity, hyperlipidemia, peripheral neuropathy, degenerative arthritis, spinal arthritis, anemia of chronic disease. DISPOSITION: Home with family providing 24 hours supervision and hemodialysis at [facility], Wednesday, , Wednesday mornings. DISCHARGE DIET: Renal, diabetic, heart-healthy with 1200 cc p.o. fluid restriction daily. DISCHARGE MEDICATIONS: Lopressor 50 mg p.o. b.i.d., Cozaar 50 mg p.o. daily, regular low-dose Novolin insulin protocol before meals and at bedtime, Neurontin 300 mg p.o. t.i.d., and Lipitor 40 mg p.o. at bedtime. SUMMARY: This is a 77-year-old male who was admitted to [facility] with altered mental status in the setting of end-stage renal disease, now hemodialysis dependent, and marked hypoglycemia secondary to patient taking oral hypoglycemics at home. The patient was converted to regular low-dose insulin coverage before meals and at bedtime and initiated hemodialysis treatment without incident. He was noted to have anemia which will be treated at dialysis with both Aranesp and IV Venofer, and the patient is tolerating dialysis treatments via his current right tunneled Tesio [place] catheter without incident. At the time of discharge, temperature was 98.4, respirations 20, pulse 64, blood pressure 114/59, pulse 68 and regular, pulse ox 96% on room air. Clinical exam was stable. PT/INR 1.21, PTT 29.3. White count 10,400, hemoglobin 10.6, hematocrit 32.8, platelets 200,000. Hepatitis A, B, C serologies were negative. Chest x-ray showed resolution of congestive heart failure and EKG was in normal sinus rhythm with nonspecific ST-T wave changes. The patient will be scheduled for an epidural with Dr. Onesimo Odonnell for pain management of his chronic spinal arthritis and peripheral neuropathy. I have discussed all of the above with Dr. Odonnell including his laboratory findings. His Plavix remains on hold pending his epidural, and Dr. Odonnell will be discussing the timing of re-instituting Plavix with the patient and family after successful epidural. The patient will attend hemodialysis at the [facility] and will be followed in my office as an outpatient as well. All of the above was discussed in detail with the patient, nursing, family members, Dr. Odonnell, and dialysis unit nurses. Greater than 35 minutes was spent in the care, counseling, management, ordering of labs, and review of x-ray reports with this patient today. All questions were answered. Heather Magana MD MTDD
== END 2017-10-18 11:32 | disposition home or self-care (01) | DRG 291 ==
LOC: TRCU 15:42
PROVIDERS: ADMIT Internal Medicine; ATTEND Internal Medicine
PROC: F07Z9FZ Gait Training/Functional Ambulation Treatment using Assistive, Adaptive, Supportive or Protective Equipment (ICD-10-PCS; principal; 2017-10-11)
PROC: F08Z4FZ Home Management Treatment using Assistive, Adaptive, Supportive or Protective Equipment (ICD-10-PCS; 2017-10-12)
PROC: 5A1D70Z Performance of Urinary Filtration, Intermittent, Less than 6 Hours Per Day (ICD-10-PCS; 2017-10-12)
DX: I13.2 Hypertensive heart and chronic kidney disease with heart failure and with stage 5 chronic kidney disease, or end stage renal disease (principal); N18.6 End stage renal disease; E87.2 Acidosis; I50.9 Heart failure, unspecified; E11.22 Type 2 diabetes mellitus with diabetic chronic kidney disease; Z99.2 Dependence on renal dialysis; D63.8 Anemia in other chronic diseases classified elsewhere; I25.10 Atherosclerotic heart disease of native coronary artery without angina pectoris; E11.42 Type 2 diabetes mellitus with diabetic polyneuropathy; E11.649 Type 2 diabetes mellitus with hypoglycemia without coma; E78.5 Hyperlipidemia, unspecified; E87.5 Hyperkalemia; E66.9 Obesity, unspecified; Z68.30 Body mass index [BMI] 30.0-30.9, adult; Z79.4 Long term (current) use of insulin; Z86.73 Personal history of transient ischemic attack (TIA), and cerebral infarction without residual deficits

== ENCOUNTER 2017-10-11 13:32 | Day surgery (SDC) | payer MEDICARE ==
[2017-10-10 17:28] VITALS: BMI 30.7
[2017-10-11] MEDS ORDERED: Lidocaine 2% Inj (20ml) ONE (14:38)
[2017-10-11] MEDS ORDERED: Midazolam 2 MG/2 ML VIAL ONE (14:38)
[2017-10-11 16:06] VITALS: O2SAT 98
[2017-10-11 16:40] VITALS: RESP 18; TEMP 98.5
[2017-10-11 17:08] VITALS: BP 130/70; PULSE 60
--- NOTE | 2017-10-11 19:20 | VASCULAR ---
PROCEDURE: Ultrasound and fluoroscopic tunneled right IJ dialysis catheter. CLINICAL HISTORY: ESRD PHYSICIAN(S): Colin Oconnell M.D. TECHNIQUE: The relative risks and indications for the procedure were explained to the patient and his son and informed written consent obtained. The patient was placed supine on the arteriography table and the right neck/chest was prepped and draped in the usual sterile fashion. 1% Xylocaine was used to anesthetize the skin and soft tissues at the puncture site. Conscious sedation and monitoring were provided throughout the procedure by a nurse. Under direct ultrasound guidance, the rightinternal jugular vein was punctured with a micropuncture set. A 0.035 Glidewire was advanced into the IVC. Sequential dilatation was performed with subsequent placement of a 28cm Miranda II catheter with its tip in the right atrium. A retrograde tunnel below the right clavicle was performed. The catheter was trimmed and the hub attached. Both ports aspirate and inject easily. The catheter was secured and a dressing applied. The patient tolerated the procedure well. IMPRESSION: 1. Ultrasound and fluoroscopically placed right IJ tunneled dialysis catheter.
== END 2017-10-11 15:30 ==
LOC: SDSVAS 13:32
PROVIDERS: ATTEND Radiology Vascular & Interventional Radiology
DX: I13.2 Hypertensive heart and chronic kidney disease with heart failure and with stage 5 chronic kidney disease, or end stage renal disease (principal); N18.6 End stage renal disease; E11.22 Type 2 diabetes mellitus with diabetic chronic kidney disease; I50.9 Heart failure, unspecified
CPT/HCPCS: 36558; 76937; 77001; 82948; 99152; C1750; C1769; J1644; J2250; J2405; J3010

== ENCOUNTER 2017-11-24 17:49 | Emergency (ER) | payer MEDICARE, OTHER ==
[2017-11-24 18:06] VITALS: BP 164/82; PULSE 61; RESP 18; TEMP 98.4; O2SAT 98; BMI 30.4
--- NOTE | 2017-11-24 19:03 | ED PDOC ---
Arrival/HPI - General Chief Complaint: Trauma Time Seen by Provider: 11/24/17 18:05 Historian: Patient - History of Present Illness Narrative History of Present Illness (Text): 11/24/17 19:00 77 yo M w/ PMH of DM, HTN, high cholesterol, CKD, presents s/p mechanical fall, states that he tripped and fell on the sidewalk. Patient reports sustaining injury to his chin, losing a tooth to the L front bottom, R 4th finger and R knee. Otherwise: (-) loss of consciousness, (-) nausea, (-) vomiting, (-) severe headache, (-) other injury, (-) neck pain, (-) subjective neurologic deficit, (+) anticoagulants. Has no history of prior significant head injury. PMD [place] Past Medical History - Provider Review Nursing Documentation Reviewed: Yes - Cardiac Hx Hypertension: Yes - Pulmonary Hx Respiratory Disorders: No - Neurological HX Cerebrovascular Accident: Yes (3-4 (2012 most recent)) - HEENT Hx HEENT Disorder: No - Renal Hx Dialysis: Yes Type of Dialysis Access: R chest port Hx Kidney Stones: Yes (11/23/17) Hx Renal Failure: Yes - Endocrine/Metabolic Hx Diabetes Mellitus Type 2: Yes - Hematological/Oncological Hx Blood Transfusions: (UNKNOWN) - Integumentary Hx Dermatological Disorder: No - Musculoskeletal/Rheumatological Hx Musculoskeletal Disorders: Yes - Gastrointestinal Hx Gastrointestinal Disorders: No - Genitourinary/Gynecological Hx Genitourinary Disorders: No - Psychiatric Hx Emotional Abuse: No Hx Physical Abuse: No Hx Substance Use: No - Surgical History Other/Comment: R chest dialysis port - Anesthesia Hx Anesthesia: Yes Hx Anesthesia Reactions: (UNKNOWN) Hx Malignant Hyperthermia: (UNKNOWN) - Suicidal Assessment Feels Threatened In Home Enviroment: No Family/Social History - Physician Review Nursing Documentation Reviewed: Yes Family/Social History: Unknown Family HX Smoking Status: Never Smoked Hx Alcohol Use: No Hx Substance Use: No Allergies/Home Meds Allergies/Adverse Reactions: Allergies No Known Allergies Allergy (Verified 10/13/17 08:35) Home Medications: Home Meds Medication Instructions Recorded Confirmed Clopidogrel [Plavix] 75 mg PO DAILY 10/07/17 11/24/17 Review of Systems - Review of Systems Constitutional: absent: Fatigue, Weight Change, Fevers Respiratory: absent: SOB, Cough, Sputum Cardiovascular: absent: Chest Pain, Palpitations, Orthopnea Gastrointestinal: absent: Abdominal Pain, Nausea, Vomiting Genitourinary Male: absent: Dysuria, Frequency, Hematuria Musculoskeletal: Arthralgias, Back Pain (chronic back pain). absent: Neck Pain Skin: absent: Rash, Pruritis, Skin Lesions Physical Exam - Physical Exam Narrative Physical Exam (Text): 11/24/17 19:02 GENERAL APPEARANCE: Patient is awake, alert, oriented x 3, in no acute distress. SKIN: Warm, dry; (-) cyanosis. HEAD: Mild swelling, ecchymosis with no tenderness of the chin, with no palpable bony defect. EYES: (-) conjunctival pallor, (-) scleral icterus, (-) nystagmus. ENMT: Mucous membranes moist. (-) Puri's sign. TMs: (-) blood. Nose: (- ) tenderness, (-) rhinorrhea. (+) Lost tooth to the L front bottom, with no other oral trauma. Pharynx clear. Airway patent: (-) stridor. Full ROM of mandible without pain. NECK: (-) tenderness, (-) stiffness, (-) lymphadenopathy. CHEST AND RESPIRATORY: (-) chest wall tenderness. Lungs: (-) rales, (-) rhonchi, (-) wheezes; breath sounds equal bilaterally. HEART AND CARDIOVASCULAR: (-) irregularity; (-) murmur, (-) gallop. ABDOMEN AND GI: Soft; (-) tenderness. BACK: (-) tenderness. EXTREMITIES: (-) deformity, (-) tenderness, (+) ecchymosis of the R 4th DIP, (+ ) abrasion to the R knee, (-) limitation of motion, (+) cap refill < 2 sec, (+) distal pulses and sensation intact. NEURO AND PSYCH: GCS=15. Mental status as above. Has full memory of episode; outsole tacker: Pupils equal & reactive . EOMI. (-) facial asymmetry. Tongue and uvula midline. Strength 5/5 in all extremities. No gross sensory deficits. DTRs symmetric. Vital Signs Temp Pulse Resp BP Pulse Ox 11/24/17 18:03 98.4 F 61 18 164/82 H 98 Medical Decision Making ED Course and Treatment: 11/24/17 19:02 77 yo M w/ PMH of DM, HTN, high cholesterol, CKD, presents s/p mechanical fall, states that he tripped and fell on the sidewalk. Patient reports sustaining injury to his chin, R 4th finger and R knee. Plan : -- CT head -- XR R 4th finger -- Tylenol PO XR and CT results d/w the family and with the patient. On re-evaluation, patient remains AAOx3 in no acute distress, repeat neuro exam shows no focal findings. Based on history, exam and diagnostic results plan will be for outpatient follow-up. Patient instructed to follow up with primary care physician in 1-2 days without fail. Return to the emergency room at any time for any new or worsening symptoms. Patient states he fully agrees with and understands discharge instructions. States that he agrees with the plan and disposition. Verbalized and repeated discharge instructions and plan. I have given the patient opportunity to ask any additional questions. - RAD Interpretation Narrative RAD Interpretations (Text): 11/24/17 20:10 XR R 4th digit : no acute fracture, moderate DJD, as read by PA CT HEAD w/o contrast : FINDINGS: Brain: Ventricles are normal in size and configuration. There is no midline shift. There is decrease attenuation in periventricular white matter. There is prominence of sulci and gyri. There are no intra-axial or extra-axial mass lesions or hemorrhages. There is a small right frontal hygroma. Schneider-white differentiation is maintained. Ventricles: See above Bones: Cranial vault is intact. Soft tissues: unremarkable Sinuses: There is no acute sinusitis. Ears and mastoids: Middle ears and mastoids are unremarkable Orbits: Orbital contents are unremarkable. IMPRESSION: No acute intracranial abnormality; mild atrophy and small vessel disease; small right frontal hygroma, no bleed Dictated By: Audrey Coffman MD Dictated Date/Time: 11/24/17 194 Radiology Orders: 11/24/17 18:40 HEAD W/O CONTRAST [CT] Stat 11/24/17 18:41 HAND RIGHT 4TH DIGIT (FINGER) [RAD] Stat - Medication Orders Current Medication Orders: Discontinued Medications Acetaminophen (Tylenol 325mg Tab) 650 mg PO STAT STA Stop: 11/24/17 18:43 Last Admin: 11/24/17 18:50 Dose: 650 mg MAR Pain/Vitals Document 11/24/17 18:50 RG (Rec: 11/24/17 18:52 RG [id number]) Pain Reassessment Is This A Pain ReAssessment? Yes Sleep Is patient sleeping during reassessment? No Presence of Pain Presence of Pain Yes Pain Scale Used Pain Scale Used Numeric Location Pain Location Body Site Lip Description Constant Intensity 5 Scale Used Numeric Pain Behavior Irritability Alleviating Factors Sitting - PA / CUSTOMER RESPONSE REPRESENTATIVE / Resident Statement MD/DO has reviewed & agrees with the documentation as recorded. Disposition/Present on Arrival - Present on Arrival Any Indicators Present on Arrival: Yes History of DVT/PE: No History of Uncontrolled Diabetes: Yes Urinary Catheter: No History of Decub. Ulcer: No History Surgical Site Infection Following: None - Disposition Have Diagnosis and Disposition been Completed?: Yes Diagnosis: Head injury, Finger contusion, Fall Disposition: HOME/ ROUTINE Disposition Time: 20:00 Patient Plan: Discharge Patient Problems: Current Active Problems Problem Status Onset Fall Acute Finger contusion Acute Head injury Acute Condition: STABLE Discharge Instructions (ExitCare): Head Injury (ED), Contusion in Adults (ED) Print Language: CITIZEN OF [place] Additional Instructions: Thank you for letting us take care of you today. You were treated for head injury, finger contusion, status post fall. The emergency medical care you received today was directed at your acute symptoms. Return to the Emergency Department if your symptoms worsen, do not improve, or if you have any other problems. Please contact your doctor in 2 days for re-evaluation and follow up. Bring any paperwork you were given at discharge with you along with any medications you are taking to your follow up visit. Our treatment cannot replace ongoing medical care by a primary care provider (PCP) outside of the emergency department. Thank you for allowing the [facility] team to be part of your care today. If you had an X-Ray or CT scan: A Radiologist will review the ED reading if any change in treatment is needed we will contact you. Referrals: [facility], [Primary Care Provider] - Follow up with primary Forms: [place] (Liberian)
--- NOTE | 2017-11-24 19:50 | CT ---
EXAM: CT Head Without Intravenous Contrast EXAM DATE/TIME: 11/24/2017 6:40 PM CLINICAL HISTORY: 77 years old, male; Injury or trauma; Fall; Initial encounter; Blunt trauma (contusions or hematomas); Consciousness not specified TECHNIQUE: Axial computed tomography images of the head/brain without intravenous contrast. All CT scans at this facility use one or more dose reduction techniques, viz.: automated exposure control; ma/kV adjustment per patient size (including targeted exams where dose is matched to indication; i.e. head); or iterative reconstruction technique. Coronal and sagittal reformatted images were created and reviewed. COMPARISON: There are no prior studies for comparison. FINDINGS: Brain: Ventricles are normal in size and configuration. There is no midline shift. There is decrease attenuation in periventricular white matter. There is prominence of sulci and gyri. There are no intra-axial or extra-axial mass lesions or hemorrhages. There is a small right frontal hygroma. Schneider-white differentiation is maintained. Ventricles: See above Bones: Cranial vault is intact. Soft tissues: unremarkable Sinuses: There is no acute sinusitis. Ears and mastoids: Middle ears and mastoids are unremarkable Orbits: Orbital contents are unremarkable. IMPRESSION: No acute intracranial abnormality; mild atrophy and small vessel disease; small right frontal hygroma, no bleed
--- NOTE | 2017-11-25 08:12 | RAD ---
PROCEDURE: Right Hand Radiographs. HISTORY: trauma COMPARISON: None. FINDINGS: BONES: Normal. No fracture. JOINTS: Mild degenerative changes are seen in the PIP and DIP joints SOFT TISSUES: Normal. OTHER FINDINGS: None. IMPRESSION: No acute findings
== END 2017-11-24 20:22 | disposition home or self-care (01) ==
LOC: ED 17:49
DX: S09.90XA Unspecified injury of head, initial encounter (principal); S60.041A Contusion of right ring finger without damage to nail, initial encounter; W01.0XXA Fall on same level from slipping, tripping and stumbling without subsequent striking against object, initial encounter; Y92.480 Sidewalk as the place of occurrence of the external cause

== ENCOUNTER 2018-03-07 08:57 | Observation (INO) | payer MEDICARE, BC ==
--- NOTE | 2018-03-07 09:21 | ED PDOC ---
Arrival/HPI - General Time Seen by Provider: 03/07/18 09:04 Historian: Patient, Family - History of Present Illness Narrative History of Present Illness (Text): 03/07/18 09:10 77 year old male, whose PMH includes hypertension, CVA, and diabetes, who presents to the emergency department accompanied by family member, complaining of being fatigue and confused. Family reports patient recently was in the hospital receiving dialysis (Wednesday) and 6 days ago he had a recent vascular surgery through the left arm. Since then patient's arm has been swollen and painful. Patient denies chest pain, headache, abdominal pain, nausea, vomiting, diarrhea, or other complaints. PMD: Dr. Chelly Mathew Time/Duration: < week Symptom Onset: Gradual Symptom Course: Worsening Context: Home Past Medical History - Provider Review Nursing Documentation Reviewed: Yes - Cardiac Hx Cardiac Disorders: Yes Hx Hypertension: Yes Hx Pacemaker: No - Pulmonary Hx Respiratory Disorders: No - Neurological Hx Neurological Disorder: Yes HX Cerebrovascular Accident: Yes (3-4 (2012 most recent)) Hx Paralysis: No - HEENT Hx HEENT Disorder: Yes Hx Cataracts: Yes (LALO.) - Renal Hx Renal Disorder: Yes Date of Last Dialysis Treatment: 03/01/18 Hx Kidney Stones: Yes (11/23/17) Hx Renal Failure: Yes - Endocrine/Metabolic Hx Endocrine Disorders: Yes Hx Diabetes Mellitus Type 2: Yes - Hematological/Oncological Hx Blood Disorders: No Hx Blood Transfusions: (UNKNOWN) - Integumentary Hx Dermatological Disorder: Yes Other/Comment: blue skin discolorations, purple, multiple brown skin discolorations both arms, pt refusing to turn for skin asesment to back - Musculoskeletal/Rheumatological Hx Musculoskeletal Disorders: Yes Hx Arthritis: Yes (arthritis "all over") Hx Back Pain: Yes Hx Falls: No Hx Unsteady Gait: Yes (cane/walker) Other/Comment: neuropathy - Gastrointestinal Hx Gastrointestinal Disorders: Yes Hx Gall Bladder Disease: Yes - Genitourinary/Gynecological Hx Genitourinary Disorders: Yes (Renal failure) - Psychiatric Hx Psychophysiologic Disorder: No Hx Substance Use: No - Surgical History Hx Arteriovenous Shunt: Yes (LEFT ARM(01/12/18)) Hx Cataract Extraction: Yes (LEFT EYE) Hx Cholecystectomy: Yes Hx Vascular Access Device: Yes (RIGHT IJ TUNNELED CATHETER(10/11/17)) Other/Comment: R chest dialysis port - Anesthesia Hx Anesthesia: Yes Hx Anesthesia Reactions: (UNKNOWN) Hx Malignant Hyperthermia: (UNKNOWN) - Suicidal Assessment Feels Threatened In Home Enviroment: No Family/Social History - Physician Review Nursing Documentation Reviewed: Yes Family/Social History: Unknown Family HX Smoking Status: Never Smoked Hx Alcohol Use: No Hx Substance Use: No Allergies/Home Meds Allergies/Adverse Reactions: Allergies aspirin Allergy (Verified 03/07/18 09:22) RASH Home Medications: Home Meds Medication Instructions Recorded Confirmed Clopidogrel [Plavix] 75 mg PO DAILY 10/07/17 03/07/18 Cyanocobalamin [Vitamin B12 1000 1,000 mcg PO DAILY 01/05/18 03/07/18 mcg Tab] Ferrous Sulfate [Feosol] 325 mg PO DAILY 01/05/18 03/07/18 Gabapentin [Neurontin] 300 mg PO TID PRN 01/05/18 03/07/18 Insulin Human Regular [Novolin R] 0 unit SQ ACHS 01/05/18 03/07/18 oxyCODONE/Acetaminophen [Percocet 1 tab PO PRN PRN 03/07/18 03/07/18 5/325 mg Tab] Review of Systems - Physician Review All systems were reviewed & negative as marked: Yes - Review of Systems Constitutional: Fatigue. absent: Fevers Respiratory: absent: SOB Cardiovascular: absent: Chest Pain Musculoskeletal: Other (left arm pain and swelling) Neurological: Other (confused) Physical Exam Vital Signs Reviewed: Yes Vital Signs Temp Pulse Resp BP Pulse Ox 03/07/18 13:06 80 18 147/64 98 03/07/18 11:00 78 18 159/88 H 97 03/07/18 09:02 98.2 F 74 18 157/69 H 95 Temperature: Afebrile Blood Pressure: Hypertensive Pulse: Regular Respiratory Rate: Normal Appearance: Positive for: Well-Appearing, Non-Toxic, Comfortable Pain Distress: None Mental Status: Positive for: Alert and Oriented X 3 - Systems Exam Head: Present: Atraumatic, Normocephalic Pupils: Present: PERRL Extroacular Muscles: Present: EOMI Conjunctiva: Present: Normal Mouth: Present: Moist Mucous Membranes Respiratory/Chest: Present: Clear to Auscultation, Good Air Exchange. No: Respiratory Distress, Accessory Muscle Use, Wheezes, Rales, Retracting, Rhonchi Cardiovascular: Present: Regular Rate and Rhythm, Normal S1, S2. No: Murmurs Upper Extremity: Present: Normal ROM, NORMAL PULSES, Swelling (left arm swelling ), Neurovascularly Intact, Capillary Refill < 2s. No: Cyanosis, Edema , Deformity Neurological: Present: GCS=15, CN II-XII Intact, Speech Normal Skin: Present: Warm, Dry, Normal Color. No: Rashes Psychiatric: Present: Alert, Oriented x 3, Normal Insight, Normal Concentration Medical Decision Making ED Course and Treatment: 03/07/18 Impression: 77 year old male with left arm swelling complaining of left arm pain and swelling s/p vascular surgery 6 days ago. Plan: -- EKG -- Labs -- Chest X-ray -- Urinalysis -- Reassess and disposition Progress Notes: 03/07/18 09:44 EKG: Ordered, reviewed, and independently interpreted the EKG. Rate : 71 BPM Rhythm : NSR Interpretation : No ST-segment elevations or depressions, no T-wave inversions, normal intervals. 03/07/18 10:05 Chest X-ray: Creator : Jenaro Delgado MD COMPARISON:01/05/2018 FINDINGS: LUNGS: No active pulmonary disease. PLEURA: No significant pleural effusion identified, no pneumothorax apparent. CARDIOVASCULAR: Normal. OSSEOUS STRUCTURES: No significant abnormalities. VISUALIZED UPPER ABDOMEN: Normal. OTHER FINDINGS: Right IJ dialysis catheter IMPRESSION: No active disease. 03/07/18 11:15 Upper Extremity Ultrasound: Creator : Colin Richardson MD FINDINGS: The exam is limited by the bandages on the upper arm. The visualized leftinternal jugular vein is sonographically normal and compressible. No evidence of obstruction or thrombus is seen. The visualized segments of the left subclavian vein are patent with normal waveforms. No sonographic evidence of obstruction or thrombosis is seen. The visualized deep venous system of the proximal leftupper extremity is sonographically normal and compressible. IMPRESSION: 1. No sonographic evidence for deep venous thrombosis in the visualized segments of the left upper extremity. 2. Limited exam. 03/07/18 14:[address] garza, accepts for admission. pt with AMS, needs further neuroimaging and admission. - Lab Interpretations Lab Results: 03/07/18 09:45 04/09/18 09:45 Lab Results 03/07/18 09:51: POC Glucose (mg/dL) 154 H 03/07/18 09:45: Sodium 140, Potassium 4.1, Chloride 98, Carbon Dioxide 29, Anion Gap 18, BUN 60 H, Creatinine 4.6 H, Est GFR ( Amer) 15, Est GFR ( Non-Af Amer) 12, Random Glucose 177 H, Calcium 10.2, Magnesium 1.9, Total Bilirubin 0.5, AST 26, ALT 26, Alkaline Phosphatase 152 H D, Lactate Dehydrogenase 369, Total Creatine Kinase 36, Troponin I < 0.01, Total Protein 7.9, Albumin 3.9, Globulin 4.0, Albumin/Globulin Ratio 1.0 L 03/07/18 09:45: PT 12.7 H, INR 1.10 H, APTT 27.8 03/07/18 09:45: WBC 9.3 D, RBC 4.45, Hgb 12.1 L, Hct 37.3 L, MCV 83.8, MCH 27.2 , MCHC 32.4, RDW 15.4 H, Plt Count 238, MPV 9.0, Gran % 52.3, Lymph % (Auto) 25.7, [place] % (Auto) 6.3 H, Eos % (Auto) 15.2 H, Baso % (Auto) 0.5, Gran # 4.88, Lymph # (Auto) 2.4, [place] # (Auto) 0.6, Eos # (Auto) 1.4 H, Baso # (Auto) 0.05 I have reviewed the lab results: Yes - RAD Interpretation Radiology Orders: 03/07/18 09:18 CHEST PORTABLE [RAD] Stat 03/07/18 09:54 DUPLEX UPPER EXTRM VEIN LEFT [US] Stat 03/07/18 10:07 HEAD W/O CONTRAST [CT] Stat 03/07/18 11:37 MRA HEAD WITHOUT CONTRAST [MRI] Routine 03/07/18 11:38 BRAIN WITHOUT CONTRAST [MRI] Routine 03/07/18 11:39 CAROTID & VERTEBRAL DUPLEX [US] Routine Dope Mixer: Radiologist - EKG Interpretation Interpreted by ED Physician: Yes Type: 12 lead EKG - Medication Orders Current Medication Orders: Acetaminophen (Tylenol 325mg Tab) 650 mg PO Q6H PRN PRN Reason: Fever >100.4 F Atorvastatin Calcium (Lipitor) 40 mg PO HS TALIB Clopidogrel Bisulfate (Plavix) 75 mg PO DAILY [facility] Last Admin: 03/07/18 13:08 Dose: 75 mg Gabapentin (Neurontin) 300 mg PO TID [facility] Insulin Human Regular (Humulin R Low) 0 units SC ACHS TALIB PRN Reason: Protocol Losartan Potassium (Cozaar) 50 mg PO DAILY [facility] Last Admin: 03/07/18 13:08 Dose: 50 mg Metoprolol Tartrate (Lopressor) 50 mg PO BID [facility] Last Admin: 03/07/18 13:09 Dose: 50 mg Ondansetron HCl (Zofran Inj) 4 mg IVP Q6H PRN PRN Reason: Nausea/Vomiting Tramadol/Acetaminophen (Ultracet 37.5/325 Mg) 1 tab PO BID PRN PRN Reason: Pain, severe (8-10) - Scribe Statement The provider has reviewed the documentation as recorded by the Brynibe Azeb Wolf Provider Scribe Attestation: All medical record entries made by the Scribe were at my direction and personally dictated by me. I have reviewed the chart and agree that the record accurately reflects my personal performance of the history, physical exam, medical decision making, and the department course for this patient. I have also personally directed, reviewed, and agree with the discharge instructions and disposition. Disposition/Present on Arrival - Present on Arrival Any Indicators Present on Arrival: No History of DVT/PE: No History of Uncontrolled Diabetes: Yes Urinary Catheter: No History Surgical Site Infection Following: None - Disposition Have Diagnosis and Disposition been Completed?: Yes Diagnosis: Altered mental status Disposition: HOSPITALIZED Disposition Time: 14:24 Condition: STABLE
[2018-03-07 09:58] LABS: BASO # 0.05 K/mm3 (0.0-2.0); BASO % 0.5 % (0.0-3.0); EOS # 1.4 (0.0-0.7); EOS % 15.2 % (1.5-5.0); GRAN # 4.88 (1.4-6.5); GRAN % 52.3 % (50.0-68.0); HEMOGLOBIN 12.1 g/dL (14.0-18.0); LYMPH # 2.4 (1.2-3.4); LYMPH % 25.7 % (22.0-35.0); MEAN CELL VOLUME 83.8 fl (80.0-105.0); MEAN CORPUSCULAR HEMOGLOBIN 27.2 pg (25.0-35.0); MEAN CORPUSCULAR HGB CONC 32.4 g/dl (31.0-37.0); MONO # 0.6 (0.1-0.6); MONO % 6.3 % (1.0-6.0); RBC 4.45 10^6/uL (3.5-6.1); RED CELL DISTRIBUTION WIDTH 15.4 % (11.5-14.5); WHITE BLOOD COUNT 9.3 10^3/ul (4.5-11.0)
--- NOTE | 2018-03-07 10:04 | RAD ---
HISTORY: weakness COMPARISON: 01/05/2018 FINDINGS: LUNGS: No active pulmonary disease. PLEURA: No significant pleural effusion identified, no pneumothorax apparent. CARDIOVASCULAR: Normal. OSSEOUS STRUCTURES: No significant abnormalities. VISUALIZED UPPER ABDOMEN: Normal. OTHER FINDINGS: Right IJ dialysis catheter IMPRESSION: No active disease.
[2018-03-07 10:13] LABS: ALBUMIN 3.9 g/dL (3.0-4.8); ALT/SGPT 26 U/L (7-56); AST/SGOT 26 U/L (17-59); BLOOD UREA NITROGEN 60 mg/dL (7-21); CALCIUM 10.2 mg/dL (8.4-10.5); GFR AFRICAN-AMERICAN 15; GFR NON-AFRICAN AMERICAN 12
[2018-03-07 10:14] LABS: INR 1.1 (0.93-1.08); PARTIAL THROMBOPLASTIN TIME 27.8 Seconds (25.1-36.5); PROTHROMBIN TIME 12.7 SECONDS (9.4-12.5)
[2018-03-07 10:22] LABS: TROPONIN I < 0.01 ng/mL
--- NOTE | 2018-03-07 10:36 | CP.PCM.CON ---
<Gaurav Sanchez - Last Filed: 03/07/18 10:46> History of Present Illness - History of Present Illness History of Present Illness: 77 year old male with a past medical history of hypertension, cva, and diabetes who comes in to the hospital complaining of confusion and fatigue. He reports the arm being swollen and painful upon movement. Of note the patient received dialysis (Wednesday) and recently underwent vascular surgery 6 days ago.Patient denies any chest pain, nausea, vomiting, fevers, chills, abdominal pain, syncopal episodes, fevers, chills, or any other complaints.s. PMD: Dr. Chelly Mathew Past medical history: hypertension, cva, diabetes Medications: Didn't have them. Will follow up with Pharmacy. Allergies: Aspirin Past surgical history: AV fistula Social: Social drinker. Denies illicit drug use. Review of Systems - Constitutional Constitutional: absent: Chills, Frequent Falls, Headache, Night Sweats, Weakness - EENT Eyes: absent: Blurred Vision, Discharge, Loss of Peripheral Vision, Requires Corrective Lenses, Loss of Vision Ears: absent: Ear Discharge, Dizziness Nose/Mouth/Throat: absent: Nasal Congestion, Nose Pain, Bleeding Gums, Dysphagia , Halitosis, Neck Pain - Cardiovascular Cardiovascular: absent: Chest Pain, Irregular Heart Rhythm, Leg Edema, Palpitations, Slow Heart Rate, Syncope - Respiratory Respiratory: absent: Cough, Dyspnea, Hemoptysis - Gastrointestinal Gastrointestinal: absent: Belching, Change in Stool Character, Dyspepsia, Fecal Incontinence, Heartburn, Melena, Nausea, Vomiting - Genitourinary Genitourinary: absent: Nocturia, Urinary Hesitance - Musculoskeletal Musculoskeletal: absent: Abnormal Gait, Arthralgias, Atrophy, Neck Pain, Tingling - Integumentary Additional comments: left arm fistula pain - Neurological Neurological: absent: Abnormal Hearing, Burning Sensations, Lack of Coordination , Radicular Pain, Vertigo - Psychiatric Psychiatric: absent: Abnormal Sleep Pattern, Anhedonia, Anxiety, Hopelessness, Panic Attacks Past Patient History - Past Medical History & Family History Past Medical History?: Yes - Past Social History Smoking Status: Never Smoked - CARDIAC Hx Cardiac Disorders: Yes Hx Hypertension: Yes Hx Pacemaker: No - PULMONARY Hx Respiratory Disorders: No - NEUROLOGICAL Hx Neurological Disorder: Yes HX Cerebrovascular Accident: Yes (3-4 (2013 most recent)) Hx Paralysis: No - HEENT Hx HEENT Problems: Yes Hx Cataracts: Yes (LALO.) - RENAL Hx Chronic Kidney Disease: Yes Date of Last Dialysis Treatment: 03/01/18 Hx Kidney Stones: Yes (11/23/17) Hx Renal Failure: Yes - ENDOCRINE/METABOLIC Hx Endocrine Disorders: Yes Hx Diabetes Mellitus Type 2: Yes - HEMATOLOGICAL/ONCOLOGICAL Hx Blood Disorders: No Hx Blood Transfusions: (UNKNOWN) - INTEGUMENTARY Hx Dermatological Problems: Yes Other/Comment: blue skin discolorations, purple, multiple brown skin discolorations both arms, pt refusing to turn for skin asesment to back - MUSCULOSKELETAL/RHEUMATOLOGICAL Hx Musculoskeletal Disorders: Yes Hx Arthritis: Yes (arthritis "all over") Hx Back Pain: Yes Hx Falls: No Hx Unsteady Gait: Yes (cane/walker) Other/Comment: neuropathy - GASTROINTESTINAL Hx Gastrointestinal Disorders: Yes Hx Gall Bladder Disease: Yes - GENITOURINARY/GYNECOLOGICAL Hx Genitourinary Disorders: Yes (Renal failure) - PSYCHIATRIC Hx Psychophysiologic Disorder: No Hx Substance Use: No - SURGICAL HISTORY Hx Arteriovenous Shunt: Yes (LEFT ARM(01/12/18)) Hx Cataract Extraction: Yes (LEFT EYE) Hx Cholecystectomy: Yes Hx Vascular Access Device: Yes (RIGHT IJ TUNNELED CATHETER(10/11/17)) Other/Comment: R chest dialysis port - ANESTHESIA Hx Anesthesia: Yes Hx Anesthesia Reactions: (UNKNOWN) Hx Malignant Hyperthermia: (UNKNOWN) Meds Allergies/Adverse Reactions: Allergies Allergy/AdvReac Type Severity Reaction Status Date / Time aspirin Allergy RASH Verified 03/07/18 09:22 Physical Exam - Head Exam Head Exam: ATRAUMATIC, NORMAL INSPECTION, NORMOCEPHALIC - Eye Exam Eye Exam: EOMI, Normal appearance, PERRL Pupil Exam: NORMAL ACCOMODATION, PERRL. absent: Irregular, Unequal - ENT Exam ENT Exam: Mucous Membranes Moist, Normal Exam - Neck Exam Neck exam: Positive for: Normal Inspection - Respiratory Exam Respiratory Exam: Clear to Auscultation Bilateral, NORMAL BREATHING PATTERN. absent: Chest Wall Tenderness, Prolonged Expiratory Phase, Respiratory Distress - Cardiovascular Exam Cardiovascular Exam: REGULAR RHYTHM, +S1, +S2 - GI/Abdominal Exam GI & Abdominal Exam: Normal Bowel Sounds, Soft - Back Exam Back exam: NORMAL INSPECTION. absent: CVA tenderness (L), CVA tenderness (R), paraspinal tenderness - Neurological Exam Neurological exam: Alert, CN II-XII Intact, Oriented x3 - Psychiatric Exam Psychiatric exam: Normal Affect, Normal Mood - Skin Additional comments: left arm fistula present. Results - Vital Signs Recent Vital Signs: Last Vital Signs Temp 98.2 F 03/07/18 09:02 Pulse 74 03/07/18 09:02 Resp 18 03/07/18 09:02 BP 157/69 H 03/07/18 09:02 Pulse Ox 95 03/07/18 09:02 - Labs Result Diagrams: 03/07/18 09:45 03/07/18 09:45 Labs: Laboratory Results - last 24 hr 03/07/18 03/07/18 03/07/18 09:45 09:45 09:45 WBC 9.3 D RBC 4.45 Hgb 12.1 L Hct 37.3 L MCV 83.8 MCH 27.2 MCHC 32.4 RDW 15.4 H Plt Count 238 MPV 9.0 Gran % 52.3 Lymph % (Auto) 25.7 [place] % (Auto) 6.3 H Eos % (Auto) 15.2 H Baso % (Auto) 0.5 Gran # 4.88 Lymph # (Auto) 2.4 Rich # (Auto) 0.6 Eos # (Auto) 1.4 H Baso # (Auto) 0.05 PT 12.7 H INR 1.10 H APTT 27.8 Sodium 140 Potassium 4.1 Chloride 98 Carbon Dioxide 29 Anion Gap 18 BUN 60 H Creatinine 4.6 H Est GFR ( Amer) 15 Est GFR (Non-Af Amer) 12 POC Glucose (mg/dL) Random Glucose 177 H Calcium 10.2 Magnesium 1.9 Total Bilirubin 0.5 AST 26 ALT 26 Alkaline Phosphatase 152 H D Lactate Dehydrogenase 369 Total Creatine Kinase 36 Troponin I < 0.01 Total Protein 7.9 Albumin 3.9 Globulin 4.0 Albumin/Globulin Ratio 1.0 L 03/07/18 09:51 WBC RBC Hgb Hct MCV MCH MCHC RDW Plt Count MPV Gran % Lymph % (Auto) [place] % (Auto) Eos % (Auto) Baso % (Auto) Gran # Lymph # (Auto) [place] # (Auto) Eos # (Auto) Baso # (Auto) PT INR APTT Sodium Potassium Chloride Carbon Dioxide Anion Gap BUN Creatinine Est GFR ( Amer) Est GFR (Non-Af Amer) POC Glucose (mg/dL) 154 H Random Glucose Calcium Magnesium Total Bilirubin AST ALT Alkaline Phosphatase Lactate Dehydrogenase Total Creatine Kinase Troponin I Total Protein Albumin Globulin Albumin/Globulin Ratio Assessment & Plan - Assessment and Plan (Free Text) Assessment: 77 year old male with post-op left fistula pain. Plan: -No surgical indication required at this time. -Patient is to to follow up with Dr. Ortiz within a week to remove quyen. -Pain management D/W Dr. Angel Sanchez, PGY1 <Tr Abdi - Last Filed: 03/07/18 11:44> History of Present Illness - History of Present Illness History of Present Illness: VAscular surgery Meds - Medications Medications: Current Medications Acetaminophen (Tylenol 325mg Tab) 650 mg PO Q6H PRN PRN Reason: Fever >100.4 F Atorvastatin Calcium (Lipitor) 40 mg PO HS [facility] Clopidogrel Bisulfate (Plavix) 75 mg PO DAILY [facility] Gabapentin (Neurontin) 300 mg PO TID [facility] Insulin Human Regular (Humulin R Low) 0 units SC ACHS [facility]IB PRN Reason: Protocol Losartan Potassium (Cozaar) 50 mg PO DAILY [facility] Metoprolol Tartrate (Lopressor) 50 mg PO BID [facility] Ondansetron HCl (Zofran Inj) 4 mg IVP Q6H PRN PRN Reason: Nausea/Vomiting Tramadol/Acetaminophen (Ultracet 37.5/325 Mg) 1 tab PO BID PRN PRN Reason: severe pain Results - Vital Signs Recent Vital Signs: Last Vital Signs Temp 98.2 F 03/07/18 09:02 Pulse 74 03/07/18 09:02 Resp 18 03/07/18 09:02 BP 157/69 H 03/07/18 09:02 Pulse Ox 95 03/07/18 09:02 - Labs Result Diagrams: 03/07/18 09:45 03/07/18 09:45 Labs: Laboratory Results - last 24 hr 03/07/18 03/07/18 03/07/18 09:45 09:45 09:45 WBC 9.3 D RBC 4.45 Hgb 12.1 L Hct 37.3 L MCV 83.8 MCH 27.2 MCHC 32.4 RDW 15.4 H Plt Count 238 MPV 9.0 Gran % 52.3 Lymph % (Auto) 25.7 [place] % (Auto) 6.3 H Eos % (Auto) 15.2 H Baso % (Auto) 0.5 Gran # 4.88 Lymph # (Auto) 2.4 Rich # (Auto) 0.6 Eos # (Auto) 1.4 H Baso # (Auto) 0.05 PT 12.7 H INR 1.10 H APTT 27.8 Sodium 140 Potassium 4.1 Chloride 98 Carbon Dioxide 29 Anion Gap 18 BUN 60 H Creatinine 4.6 H Est GFR ( Amer) 15 Est GFR (Non-Af Amer) 12 POC Glucose (mg/dL) Random Glucose 177 H Calcium 10.2 Magnesium 1.9 Total Bilirubin 0.5 AST 26 ALT 26 Alkaline Phosphatase 152 H D Lactate Dehydrogenase 369 Total Creatine Kinase 36 Troponin I < 0.01 Total Protein 7.9 Albumin 3.9 Globulin 4.0 Albumin/Globulin Ratio 1.0 L 03/07/18 09:51 WBC RBC Hgb Hct MCV MCH MCHC RDW Plt Count MPV Gran % Lymph % (Auto) [place] % (Auto) Eos % (Auto) Baso % (Auto) Gran # Lymph # (Auto) [place] # (Auto) Eos # (Auto) Baso # (Auto) PT INR APTT Sodium Potassium Chloride Carbon Dioxide Anion Gap BUN Creatinine Est GFR ( Amer) Est GFR (Non-Af Amer) POC Glucose (mg/dL) 154 H Random Glucose Calcium Magnesium Total Bilirubin AST ALT Alkaline Phosphatase Lactate Dehydrogenase Total Creatine Kinase Troponin I Total Protein Albumin Globulin Albumin/Globulin Ratio Assessment & Plan - Assessment and Plan (Free Text) Assessment: : POD 5 s/p L AVF transposition: NO signs of steal syndrome Pt has good L AVF thrills/bruit, distal pulses. Full ROM. No L hand pain/ numnbess/tingling. US neg for DVT or thrombosis at the anastomosis site Plan: CLear for DC for surgical standpoint with pain meds.
--- NOTE | 2018-03-07 11:15 | US ---
PROCEDURE: Left upper extremity venous ultrasound HISTORY: Arm pain and swelling. Evaluate for deep venous thrombosis. PHYSICIAN(S): Colin Oconnell MD. FINDINGS: The exam is limited by the bandages on the upper arm. The visualized leftinternal jugular vein is sonographically normal and compressible. No evidence of obstruction or thrombus is seen. The visualized segments of the left subclavian vein are patent with normal waveforms. No sonographic evidence of obstruction or thrombosis is seen. The visualized deep venous system of the proximal leftupper extremity is sonographically normal and compressible. IMPRESSION: 1. No sonographic evidence for deep venous thrombosis in the visualized segments of the left upper extremity. 2. Limited exam.
--- NOTE | 2018-03-07 11:25 | CT ---
PROCEDURE: CT HEAD WITHOUT CONTRAST. HISTORY: ams COMPARISON: None available. TECHNIQUE: Axial computed tomography images were obtained through the head/brain without intravenous contrast. Radiation dose: Total exam DLP = 847 mGy-cm. This CT exam was performed using one or more of the following dose reduction techniques: Automated exposure control, adjustment of the mA and/or kV according to patient size, and/or use of iterative reconstruction technique. FINDINGS: HEMORRHAGE: No intracranial hemorrhage. BRAIN: No mass effect or edema. Chronic microvascular changes in the periventricular white matter. VENTRICLES: Unremarkable. No hydrocephalus. CALVARIUM: Unremarkable. PARANASAL SINUSES: Unremarkable as visualized. No significant inflammatory changes. MASTOID AIR CELLS: Unremarkable as visualized. No inflammatory changes. OTHER FINDINGS: None. IMPRESSION: No acute findings
[2018-03-07] MEDS ORDERED: TraMADol/Apap 37.5/325 mg Tab PO PRN ×2 (11:35→11:42)
--- NOTE | 2018-03-07 13:56 | CARD ---
APPROVED REPORT EKG Measurement Heart [id number] <Conclusion> Normal sinus rhythm with 1st degree AVB. PRWP
--- NOTE | 2018-03-07 14:37 | MRI ---
PROCEDURE: MRI BRAIN WITHOUT CONTRAST HISTORY: ams COMPARISON: None. TECHNIQUE: Multiplanar, multisequence MR images of the brain were obtained without intravenous contrast enhancement. FINDINGS: HEMORRHAGE: None DWI: No evidence of an acute or early subacute infarction. BRAIN PARENCHYMA: No mass effect or edema. Chronic microvascular changes are seen in the periventricular white matter. No acute intracranial findings VENTRICLES: Unremarkable. No hydrocephalus. CRANIUM: Unremarkable. ORBITS: Grossly unremarkable. PARANASAL SINUSES/MASTOIDS: Clear VASCULAR SYSTEM: Skull base flow voids intact. OTHER FINDINGS: None. IMPRESSION: No acute intracranial findings
--- NOTE | 2018-03-07 14:38 | MRI ---
PROCEDURE: Magnetic Resonance Angiography Brain HISTORY: ams COMPARISON: None available. TECHNIQUE: 3D time of flight MR angiography of the intracranial arteries was performed. Rotating maximum intensity projection images were generated. FINDINGS: INTERNAL CAROTID ARTERIES: Unremarkable. The skull base, petrous, cavernous and supraclinoid segments are bilaterally widely patient. ANTERIOR CEREBRAL ARTERIES: Unremarkable. A1 and A2 segments are widely patent. Smaller distal branches unremarkable, as visualized. MIDDLE CEREBRAL ARTERIES: Unremarkable. M1 and M2 segments are widely patent. Perisylvian branches grossly symmetric. POSTERIOR CIRCULATION: Basilar Artery: Unremarkable. Distal Vertebral Arteries: Unremarkable. Posterior Cerebral Arteries: Unremarkable. Posterior Inferior Cerebellar Arteries: Unremarkable. ANEURYSM/ VASCULAR MALFORMATIONS: None. OTHER FINDINGS: None. IMPRESSION: Unremarkable MR angiography of the brain.
[2018-03-07 16:56] VITALS: BMI 31.9
[2018-03-07] MEDS ORDERED: Pneumococcal 23-Valent Vaccine IM ONE (16:57)
[2018-03-07] MEDS: Insulin Reg-LOW-Coverage SC SCH ×2 (17:33→21:34)
--- NOTE | 2018-03-07 18:19 | HP ---
DATE OF EXAM: 03/07/2018 HISTORY OF PRESENT ILLNESS: This 77-year-old male was examined in the [facility] Emergency Room where he presented with confusion and weakness. The patient is being admitted to the cardiac unit for evaluation of altered mental status and fatigue. The patient is a 77-year-old male with end-stage renal disease, hemodialysis dependent, who dialyzes on Tuesdays, , and Saturdays at the [facility] Renal Dialysis Unit. His past medical history is significant for chronic hypertension, old stroke, insulin-dependent diabetes mellitus, anemia of chronic disease, degenerative arthritis, spinal arthritis, hypertension, peripheral neuropathy and hyperlipidemia. The patient presented to [facility] ER earlier today accompanied by his daughter who stated that the patient was more confused and fatigued. He underwent left upper extremity AV fistula revision with Dr. Ortiz at [facility] late last week. He was prescribed Percocet 10/325 for pain and daughter feels that since he had started the analgesic, he seems a little bit more confused than usual. However, when further questioning her, she also stated that some of this weakness and confusion preceded his surgery and Percocet administration. The patient according to the daughter was confused to place and time when she questioned him at home and was complaining of feeling weak and fatigued. REVIEW OF SYSTEMS: HEAD: There was no history of head trauma or seizure. EYES: No change in visual acuity. He is status post left cataract repair. EARS: No hearing loss. THROAT: No swallowing difficulty. NECK: No stiffness. CARDIAC: He has a history of chronic hypertension. PUOLMONARY: No cough. No hemoptysis. GI: No nausea, no vomiting. : He has end-stage renal disease, hemodialysis dependent. HEMATOLOGIC: He has anemia of chronic disease. ENDOCRINE: Insulin-dependent diabetes mellitus and hyperlipidemia. VASCULAR: No claudication. PSYCHOLOGIC: New onset confusion. No knowledge of depression. NEUROLOGIC: Old stroke and history of spinal arthritis. MUSCULOSKELETAL: Degenerative arthritis. SURGICAL HISTORY: History of cholecystectomy and recent left upper extremity AV fistula placement and revision. OUTPATIENT MEDICATIONS: Included Lopressor 50 mg b.i.d., Cozaar 50 mg p.o. daily, regular low-dose insulin coverage before meals and at bedtime, Neurontin 300 mg t.i.d., Lipitor 40 mg p.o. at bedtime, Plavix 75 mg p.o. daily, vitamin B12 of 1000 mcg p.o. daily, Feosol 325 mg p.o. daily. FAMILY HISTORY: Noncontributory. He is a current nondrinker, nonsmoker, non IV drug misuser. He is a retired concrete plant laborer and attends hemodialysis at [facility] 3 times per week. ALLERGIES: HE HAS REPORTED ALLERGY TO [facility] IT IS NOT CLEAR WHAT THAT ALLERGY IS. PHYSICAL EXAMINATION: VITAL SIGNS: Temperature 98.2, respirations 18, pulse 74, blood pressure 157/69 with a pulse ox 95% on room air. HEENT: Head: Normocephalic, atraumatic. Eyes: No icterus. Ears: Clear. Throat: Noninjected. NECK: Supple. HEART: Regular, S1 and S2. LUNGS: Clear. ABDOMEN: Soft. EXTREMITIES: No edema. SKIN: Without rash. NEUROLOGIC: Grossly intact. PSYCHOLOGIC: Alert and oriented at present. VASCULAR: Legs warm to touch. Left upper extremity AV fistula excellent bruit and thrill. He has an excellent left wrist pulse and excellent capillary refill of his fingernails on the left hand. LABORATORY DATA: Sodium 140, K 4.1, chloride 98, bicarb 29. BUN 60, creatinine 4.6. Random blood sugar 177. Calcium 10.2. Magnesium 1.9. Bilirubin 0.5, AST 26, ALT 26, alk phos 152. Creatinine kinase normal at 36. Troponin less than 0.01, normal. LDH normal at 369. White count 9300, hemoglobin 12.1, hematocrit 37.3, platelets 238,000. PT/INR 1.10, PTT 27.8. Chest x-ray was reviewed. It shows no active disease. Left upper extremity ultrasound was reviewed. It shows no evidence of a deep venous thrombosis. Head CT was reviewed. It shows no evidence of acute infarct or hemorrhage. IMPRESSION: This is a 77-year-old male with chronic renal failure, end-stage renal disease, hemodialysis dependent, chronic hypertension, insulin-dependent diabetes mellitus, history of peripheral neuropathy, spinal arthritis, degenerative arthritis, hyperlipidemia, deconditioning with altered mental status, rule out transient ischemic attack, rule out drug effect secondary to analgesic. PLAN: To admit this patient to the cardiac unit. I have ordered a hemoglobin A1c and a fasting lipid panel for the a.m. and physical therapy for ambulation safety and for the patient to be out of bed to chair and on fall precautions with neuro checks every shift. He will be prescribed Cozaar 50 mg p.o. daily, regular low-dose insulin protocol before meals and at bedtime, Lipitor 40 mg p.o. at bedtime, Lopressor 50 mg p.o. b.i.d., Neurontin 300 mg p.o. t.i.d., Plavix 75 mg p.o. daily, Tylenol 650 p.o. every 6 hours p.r.n. pain or temperature greater than 101, and Ultracet one tablet p.o. b.i.d. p.r.n. severe pain with Zofran 4 mg IV every 6 hours p.r.n. nausea and vomiting. He has been scheduled for carotid and vertebral duplex ultrasound, brain MRI without contrast, MRA of the head without contrast, and an echocardiogram for completeness sake. He is ordered to have a renal diabetic diet. He will remain on the cardiac unit for clinical monitoring and all of the above was discussed in detail with the patient, ER physician, Dr. Segundo Mtz, and daughter at bedside. Greater than 75 minutes was spent in the care, outlining of orders and discussion of this patient's management today. All questions were answered. Heather Magana MD MTDPrem
[2018-03-08 07:34] VITALS: O2SAT 97
[2018-03-08] MEDS: Insulin Reg-LOW-Coverage SC SCH ×3 (08:00→17:02)
[2018-03-08 11:26] LABS: BASO # 0.04 K/mm3 (0.0-2.0); BASO % 0.3 % (0.0-3.0); EOS # 1.4 (0.0-0.7); EOS % 11.9 % (1.5-5.0); GRAN # 7.65 (1.4-6.5); GRAN % 64.2 % (50.0-68.0); HEMOGLOBIN 11.7 g/dL (14.0-18.0); LYMPH # 2.2 (1.2-3.4); LYMPH % 18.1 % (22.0-35.0); MEAN CORPUSCULAR HEMOGLOBIN 27.6 pg (25.0-35.0); MEAN CORPUSCULAR HGB CONC 33.2 g/dl (31.0-37.0); MEAN PLATELET VOLUME 9.5 fl (7.0-11.0); MONO # 0.7 (0.1-0.6); MONO % 5.5 % (1.0-6.0); RBC 4.24 10^6/uL (3.5-6.1); RED CELL DISTRIBUTION WIDTH 15.4 % (11.5-14.5); WHITE BLOOD COUNT 11.9 10^3/ul (4.5-11.0)
[2018-03-08 11:45] LABS: ALBUMIN 3.5 g/dL (3.0-4.8); CALCIUM 9.2 mg/dL (8.4-10.5)
--- NOTE | 2018-03-08 13:15 | PN ---
DATE: 03/08/2018 DIALYSIS PROGRESS NOTE This 77-year-old male was in the [facility] Renal Dialysis Unit. He was dialyzing on a F160, 140 sodium, two K bicarb bath. Blood flow rates are 400 mL per minute. OBJECTIVE VITAL SIGNS: Blood pressure is 133/63, pulse is 65. HEART: Regular S1, S2. LUNGS: Clear. ABDOMEN: Soft. The patient will be dialyzed for 3 hours today on a two K bath. All of the above was reviewed in detail with nurse, Hortencia Ortez, registered nurse. Heather Magana MD MTDD
--- NOTE | 2018-03-08 15:21 | PN ---
DATE: 03/08/2018 DIALYSIS PROGRESS NOTE SUBJECTIVE: This 77-year-old male was in the renal dialysis unit. PHYSICAL EXAMINATION: VITAL SIGNS: Blood pressure is 137/67, pulse is 74 and regular. HEART: Regular, S1 and S2. LUNGS: Clear. ABDOMEN: Soft. EXTREMITIES: No edema. LABORATORY DATA: Shows white count 11,900, hemoglobin 11.7, hematocrit 35.2, and platelets 265,000. Sodium 137, K 4, chloride 101, bicarb 25. BUN 67, creatinine 4.9. Random blood sugar 298. Bilirubin 0.4, AST 38, ALT 24. Cholesterol 119, triglycerides 183, LDL 44, HDL 27. Plan is to dialyze the patient for 3 hours today aiming for approximately 1 kg fluid removal. The patient is scheduled for 2-D echocardiography as well as carotid ultrasound today. Heather Magana MD MTDPrem
[2018-03-08 17:44] VITALS: BP 134/67; RESP 20; TEMP 97.6
[2018-03-08 18:13] VITALS: PULSE 70
--- NOTE | 2018-03-09 07:14 | CARD ---
APPROVED REPORT EXAM: Two-dimensional and M-mode echocardiogram with Doppler and color Doppler. INDICATION AMS/ EVALUATE CARDIAC FUNCTION 2D DIMENSIONS Left Atrium (2D)4.0 (1.6-4.0cm)IVSd1.1 (0.7-1.1cm) LVDd3.7 (3.9-5.9cm)PWd1.4 (0.7-1.1cm) LVDs2.6 (2.5-4.0cm)FS (%) 29.4 % LVEF (%)57.1 (>50%) M-Mode DIMENSIONS Aortic Root3.70 (2.2-3.7cm)Aortic Cusp Exc.1.70 (1.5-2.0cm) Aortic Valve AoV Peak Cjanoxzi070.0cm/sAoV VTI32.6cmAO Peak GR.12mmHg LVOT Peak Nusmvmqb765.0cm/sLVOT VTI30.20cmAO Mean GR.6mmHg Mitral Valve MV E Ofsiaqnx31.4cm/sMV A Qqzbyugb616.0cm/sE/A ratio0.6 TDI Lateral E' Peak V5.17cm/sMedial E' Peak V5.36cm/sE/Lateral E'14.2 E/Medial E'13.7 Pulmonary Valve PV Peak Gxdyscvm665.0cm/sPV Peak Grad.6mmHg Tricuspid Valve TR Peak Qjebkmcp118zp/sRAP BMWOTZUJ90cxZpFP Peak Gr.14mmHg [id number] LEFT VENTRICLE The left ventricle is normal size. There is mild concentric left ventricular hypertrophy. The left ventricular function is normal. The left ventricular ejection fraction is within the normal range. There is normal LV segmental wall motion. Tissue Doppler imaging reveals mild left ventricular diastolic dysfunction. RIGHT VENTRICLE The right ventricle is normal size. The right ventricular systolic function is normal. ATRIA The left atrium is borderline dilated. The right atrium size is normal. The interatrial septum is intact with no evidence for an atrial septal defect. AORTIC VALVE The aortic valve is normal in structure. No aortic regurgitation is present. There is no aortic valvular stenosis. MITRAL VALVE The mitral valve is normal in structure. There is no mitral valve regurgitation noted. TRICUSPID VALVE The tricuspid valve is normal in structure. There is trace to mild tricuspid regurgitation. PULMONIC VALVE The pulmonary valve is normal in structure. GREAT VESSELS The IVC is normal in size and collapses >50% with inspiration. PERICARDIAL EFFUSION There is no pleural effusion. There is no pericardial effusion. <Conclusion> Borderline LA enlargement. Normal LV size and systolic function. Mild concentric LVH. Mild diastolic dsyfunction. No valvular abnormalities seen.
--- NOTE | 2018-03-09 20:27 | DS ---
FINAL DIAGNOSES: Altered mental status improved, probable side effects of altered mental status, metabolic encephalopathy improved, chronic renal failure with hemodialysis dependent, chronic hypertension, insulin-dependent diabetes mellitus, peripheral neuropathy, anemia of chronic disease, degenerative arthritis. DISPOSITION: Home with family providing 24 hours supervision. Follow up at [facility] Renal Dialysis Unit on Wednesday, , Saturdays. DISCHARGE DIET: Renal diabetic, heart-healthy. DISCHARGE MEDICATIONS: Lopressor 50 mg b.i.d., Cozaar 50 mg p.o. daily, Lipitor 40 mg p.o. at bedtime, Plavix 75 mg p.o. daily, vitamin B12 1000 mcg p.o. daily, Feosol 325 mg p.o. daily, Neurontin 300 mg p.o. t.i.d., regular Novolin insulin coverage before meals and at bedtime low-dose. SUMMARY: This 77-year-old male was admitted after presenting to [facility] with metabolic encephalopathy and weakness, status post revision of a left upper extremity AV fistula by Dr. Ortiz earlier last week, after which he was prescribed Percocet 10/325 and family noted altered mental status and confusion. The patient underwent diagnostic workup including head CT, head MRI, echocardiography, all of which were unremarkable and patient had Percocet withheld and was ambulated by Physical Therapy who deemed patient stable for discharge to home. PHYSICAL EXAMINATION: VITAL SIGNS: At the time of his discharge, temperature was 97.6, respirations 20, pulse 73, blood pressure 134/67, pulse ox 97% on room air. LABORATORY DATA: White count 11,900, hemoglobin 11.7, hematocrit 35.2, and platelets 265,000. PT/INR 1.10, PTT 27.8. Sodium 137, K 4, chloride 101, bicarb 25. BUN 67, creatinine 4.9. Random blood sugar 298. Bilirubin 0.4, AST 38, ALT 24, alk phos 130. Cholesterol 119, triglycerides 183, LDL 44, HDL 27. ASSESSMENT AND PLAN: The patient is discharged to home to the care of his family. We will attend hemodialysis next and has been advised to discontinue the use of any further Percocet and to use Tylenol p.r.n. pain. Heather Magana MD [facility] # [id number]
== END 2018-03-08 18:11 | disposition home or self-care (01) ==
LOC: ED 08:57 → ERH 11:50 → INTOOBSV 11:50 → ERH 13:37 → 3RNO 15:46
PROVIDERS: ADMIT Internal Medicine; ATTEND Internal Medicine
DX: R41.82 Altered mental status, unspecified (principal); I12.9 Hypertensive chronic kidney disease with stage 1 through stage 4 chronic kidney disease, or unspecified chronic kidney disease; E78.5 Hyperlipidemia, unspecified; E11.22 Type 2 diabetes mellitus with diabetic chronic kidney disease; N18.9 Chronic kidney disease, unspecified; D63.8 Anemia in other chronic diseases classified elsewhere; Z79.02 Long term (current) use of antithrombotics/antiplatelets; Z79.4 Long term (current) use of insulin; Z86.73 Personal history of transient ischemic attack (TIA), and cerebral infarction without residual deficits; Z87.442 Personal history of urinary calculi; Z90.49 Acquired absence of other specified parts of digestive tract; Z99.2 Dependence on renal dialysis; E11.42 Type 2 diabetes mellitus with diabetic polyneuropathy; M19.90 Unspecified osteoarthritis, unspecified site; Z88.6 Allergy status to analgesic agent; R26.81 Unsteadiness on feet
CPT/HCPCS: 36415; 70450; 70544; 70551; 71045; 80053; 80061; 82550; 82948; 83036; 83615; 83735; 84100; 84484; 85025; 85610; 85730; 93005; 93306; 93971; 97116; 97162; 99285; G0378; G8978; G8979; J1644

== ENCOUNTER 2018-04-21 14:52 | Emergency (ER) | payer MEDICARE ==
[2018-04-21 14:53] VITALS: BMI 31.9
[2018-04-21 15:05] VITALS: RESP 16; O2SAT 100
--- NOTE | 2018-04-21 15:27 | ED PDOC ---
Arrival/HPI - General Chief Complaint: Lower Extremity Problem/Injury Time Seen by Provider: 04/21/18 14:57 Historian: Patient - History of Present Illness Narrative History of Present Illness (Text): 04/21/18 15:24 77 yo male h/o ESRD (T, Th, Sat; last today without issues) DM, HTN, HLD, Anemia , presents to the ED c/o right foot pain x 2-3 days. States he walks with a cane. The pain got worse today and feels like a sharp achy pain to the medial right ankle when he presses on his foot while walking. He denies any trauma. No numbness or weakness. No swelling. No calf pain or swelling. PMD: Dr. Magana. Past Medical History - Provider Review Nursing Documentation Reviewed: Yes - Infectious Disease Hx of Infectious Diseases: None - Cardiac Hx Cardiac Disorders: Yes Hx Hypertension: Yes - Pulmonary Hx Respiratory Disorders: No - Neurological HX Cerebrovascular Accident: Yes (3-4 (2012 most recent)) - HEENT Hx HEENT Disorder: Yes Hx Cataracts: Yes (LALO.) - Renal Hx Dialysis: Yes Type of Dialysis Access: left upper arm Date of Last Dialysis Treatment: 04/21/18 Hx Renal Failure: Yes - Endocrine/Metabolic Hx Diabetes Mellitus Type 2: Yes - Hematological/Oncological Hx Blood Disorders: No Hx Blood Transfusions: (UNKNOWN) - Integumentary Hx Dermatological Disorder: Yes Other/Comment: blue skin discolorations, purple, multiple brown skin discolorations both arms, pt refusing to turn for skin asesment to back - Musculoskeletal/Rheumatological Hx Arthritis: Yes (arthritis "all over") - Gastrointestinal Hx Gastrointestinal Disorders: Yes Hx Gall Bladder Disease: Yes - Genitourinary/Gynecological Hx Genitourinary Disorders: Yes (Renal failure) - Psychiatric Hx Psychophysiologic Disorder: No Hx Substance Use: No - Surgical History Hx Arteriovenous Shunt: Yes (LEFT ARM(01/12/18)) Hx Cataract Extraction: Yes (LEFT EYE) Hx Cholecystectomy: Yes Hx Vascular Access Device: Yes (RIGHT IJ TUNNELED CATHETER(10/11/17)) Other/Comment: R chest dialysis port - Anesthesia Hx Anesthesia: Yes Hx Anesthesia Reactions: (UNKNOWN) Hx Malignant Hyperthermia: (UNKNOWN) - Suicidal Assessment Feels Threatened In Home Enviroment: No Family/Social History - Physician Review Nursing Documentation Reviewed: Yes Family/Social History: No Known Family HX Smoking Status: Never Smoked Hx Alcohol Use: No Hx Substance Use: No Allergies/Home Meds Allergies/Adverse Reactions: Allergies aspirin Allergy (Verified 04/21/18 15:05) RASH Home Medications: Home Meds Medication Instructions Recorded Confirmed Unobtainable 04/21/18 04/21/18 Review of Systems - Review of Systems Constitutional: Normal Eyes: Normal ENT: Normal Respiratory: Normal Cardiovascular: Normal Gastrointestinal: Normal Genitourinary Male: Normal Musculoskeletal: Other (right ankle pain) Skin: Normal Neurological: Normal Endocrine: Normal Hemo/Lymphatic: Normal Psychiatric: Normal Physical Exam Vital Signs Temp Pulse Resp BP Pulse Ox 04/21/18 15:04 98.0 F 93 H 16 156/60 H 100 Temperature: Afebrile Blood Pressure: Hypertensive Pulse: Regular Respiratory Rate: Normal Appearance: Positive for: Well-Appearing, Non-Toxic, Comfortable Pain Distress: None Mental Status: Positive for: Alert and Oriented X 3 - Systems Exam Head: Present: Atraumatic, Normocephalic Lower Extremity: Present: Normal Inspection, NORMAL PULSES, Normal ROM, Tenderness (anterior and inferior to the malleolus), Neurovascularly Intact, Capillary Refill < 2 s. No: Edema, CALF TENDERNESS, Swelling Neurological: Present: GCS=15, CN II-XII Intact, Speech Normal, Motor Func Grossly Intact Skin: Present: Warm Psychiatric: Present: Alert, Oriented x 3, Normal Insight, Normal Concentration Medical Decision Making ED Course and Treatment: 04/21/18 15:28 77 yo male with right ankle pain r/o fracture vs sprain vs tendonitis -- Xrays -- Tylenol 04/21/18 16:38 X-rays negative for fx. Alejandro wrap applied to ankle. Patient able to walk at baseline with cane. Patient advised to follow up with primary care doctor and return to the ED if symptoms worsen or any other concern. - RAD Interpretation Radiology Orders: 04/21/18 15:19 ANKLE RIGHT 3 VIEWS ROUTINE [RAD] Stat FOOT RIGHT 3 VIEWS ROUTINE [RAD] Stat - Medication Orders Current Medication Orders: Discontinued Medications Acetaminophen (Tylenol 325mg Tab) 650 mg PO STAT STA Stop: 04/21/18 15:21 Last Admin: 04/21/18 16:01 Dose: 650 mg MAR Pain/Vitals Document 05/24/18 16:01 MS (Rec: 04/21/18 16:06 MS [id number]) Pain Reassessment Is This A Pain ReAssessment? No Sleep Is patient sleeping during reassessment? No Presence of Pain Presence of Pain Yes Pain Scale Used Pain Scale Used Numeric Location Left, Right or Bilateral Right Pain Location Body Site Ankle Description Constant Intensity 5 Scale Used Numeric Disposition/Present on Arrival - Present on Arrival Any Indicators Present on Arrival: Yes History of DVT/PE: No History of Uncontrolled Diabetes: Yes Urinary Catheter: No History of Decub. Ulcer: No History Surgical Site Infection Following: None - Disposition Have Diagnosis and Disposition been Completed?: Yes Diagnosis: Ankle pain Disposition: HOME/ ROUTINE Disposition Time: 16:40 Patient Plan: Discharge Patient Problems: Current Active Problems Problem Status Onset Ankle pain Acute Condition: IMPROVED Discharge Instructions (ExitCare): Ankle Sprain (DC) Additional Instructions: Mr Mcdonald, thank you for letting us take care of you today. Your provider was Dr. Montesinos. You were treated for Ankle Pain/Strain. The emergency medical care you received today was directed at your acute symptoms. If you were prescribed any medication, please fill it and take as directed. It may take several days for your symptoms to resolve. Return to the Emergency Department if your symptoms worsen, do not improve, or if you have any other problems. Please contact your doctor or call one of the physicians/clinics you have been referred to that are listed on the Patient Visit Information form that is included in your discharge packet. Bring any paperwork you were given at discharge with you along with any medications you are taking to your follow up visit. Our treatment cannot replace ongoing medical care by a primary care provider (PCP) outside of the emergency department. Thank you for allowing the [facility] team to be part of your care today. If you had an X-Ray or CT scan: A Radiologist will review the ED reading if any change in treatment is needed we will contact you. If you had a blood, urine, or wound culture: It will take several days for the results, if any change in treatment is needed we will contact you. If you had an STI test: It will take 48 hours for the results. Please call after 1 week if you have not heard back. Referrals: Joann Talley MD [Primary Care Provider] - Follow up with primary Heather Magana MD [Staff Provider] - Follow up with primary Forms: [employer] (Vietnamese)
--- NOTE | 2018-04-21 15:59 | RAD ---
PROCEDURE: Right Ankle Radiographs. HISTORY: foot pain r/o fx COMPARISON: None FINDINGS: BONES: Normal. No fracture. JOINTS: Normal. No osteoarthritis. Ankle mortise maintained. Talar dome intact SOFT TISSUES: Normal. OTHER FINDINGS: None. IMPRESSION: Normal right ankle radiographs.
--- NOTE | 2018-04-21 16:00 | RAD ---
PROCEDURE: Right Foot Radiographs. HISTORY: foot pain r/o fx COMPARISON: None. FINDINGS: BONES: Normal. No fracture. JOINTS: Normal. SOFT TISSUES: Normal. OTHER FINDINGS: None. IMPRESSION: Normal right foot radiographs.
[2018-04-22 00:01] VITALS: BP 150/66; PULSE 88; TEMP 98.1
--- NOTE | 2018-04-22 07:21 | CON ---
DATE: 04/21/2018 MEDICAL EVALUATION HISTORY OF PRESENT ILLNESS: This 77-year-old male was seen in ER for complaints of right medial ankle pain, worse over the past 3 days. I received a phone call from his daughter, Mitra mcbride today, stating that her father who is attending hemodialysis was having difficulty ambulating around the home. He has chronic arthritis, ambulates with a cane, wears slippers when in his house or otherwise shoes at all times. When I asked the family if there was any trauma to the patient's right foot or ankle, they denied any knowledge of this and the patient does have chronic degenerative arthritis. PAST MEDICAL HISTORY: Also significant for end-stage renal disease, hemodialysis dependent and he attends hemodialysis at the [facility] Renal Dialysis Unit, Wednesday, and Saturdays. He has a history of chronic hypertension and old stroke in the past, history of cataract repair bilaterally, insulin-dependent diabetes mellitus, spinal arthritis, status post epidural injections. He has a newly placed left arm AV fistula and is currently dialyzing via this with the use of a Tessio [place] catheter until his AV fistula matures. MEDICATIONS: Outpatient medications were reviewed and include Lopressor 50 mg p.o. b.i.d., Cozaar 50 mg p.o. daily, Lipitor 40 mg p.o. at bedtime, Plavix 75 mg p.o. daily, vitamin B12 1000 mcg p.o. daily, Feosol 325 mg p.o. daily, Neurontin 300 mg p.o. t.i.d. and regular Novolin insulin coverage before meals and bedtime low-dose coverage. REVIEW OF SYSTEMS: HEENT: Head review, no headache or seizure. Eye review, no change in visual acuity. Ear review, no hearing loss. Throat review, no swallowing difficulty. NECK: No stiffness. CARDIAC: Chronic hypertension. No complaints of chest pain or palpitation. PULMONARY: No cough. GASTROINTESTINAL: No hematemesis. No melena. GENITOURINARY: Chronic renal failure, hemodialysis dependent. VASCULAR: No claudication. PSYCHOLOGICAL: No depression. NEUROLOGIC: Old stroke. SKIN: Without rash. PHYSICAL EXAMINATION: VITAL SIGNS: Temperature 98, respiration 16, pulse 93 and blood pressure 156/60 with a pulse ox of 100% room air. HEENT: Head: Normocephalic, atraumatic. Eyes: No icterus. Ears: Clear. Throat: Noninjected. NECK: Supple. HEART: S1, S2. No pathological rubs, murmurs or gallops. LUNGS: Clear. ABDOMEN: Soft. EXTREMITIES: Right ankle with slight swelling. Good range of motion. VASCULAR: Legs warm to touch. PSYCHOLOGICAL: Alert. NEUROLOGIC: Intact. Right foot x-ray was reviewed. It showed no evidence of fracture or dislocation. Right ankle x-rays were reviewed. It showed no evidence of fracture or dislocation. IMPRESSION: A 77-year-old male with chronic arthritis, no evidence of fracture or foreign body on foot and ankle x-rays with complaint of difficulty ambulating, rule out tendonitis, rule out ankle sprain, rule out arthritis. PLAN: The plan will be to give this patient an Alejandro wrap. He has been instructed to take Tylenol p.r.n. pain. He will continue to walk with his cane and has been ordered to elevate his ankle and to apply cold compresses for 20 minutes every 2-3 hours. If the pain does not improve, we will consider possibly sending him for MRI evaluation. The patient and daughter are aware of the above. The patient will be monitored through the Dialysis Unit as well. Heather Magana MD MTDPrem
== END 2018-04-21 15:50 | disposition home or self-care (01) ==
LOC: ED 14:52
DX: M25.571 Pain in right ankle and joints of right foot (principal); E78.5 Hyperlipidemia, unspecified; I12.0 Hypertensive chronic kidney disease with stage 5 chronic kidney disease or end stage renal disease; N18.6 End stage renal disease; Z99.2 Dependence on renal dialysis; E11.9 Type 2 diabetes mellitus without complications